=== PATIENT | female | born 1940 | race Two or more races ===

== ENCOUNTER 2020-09-25 08:13 | Observation (INO) | payer MEDICARE, OTHER ==
[~2020-09-25] VITALS: Ht 165.1 cm; Wt 75.0 kg
[~2020-09-25 08:13] MED LIST: ATIVAN0.5 MG PO; K-TAB10 MEQ PO; METHIMAZOLE10 MG PO; PAIN RELIEVER500 M1 PO; POTASSIUM CHLO10 MEQ PO
--- NOTE | 2020-09-25 14:53 | NUR ---
09/25/20 1456 Lorri Bergeron 1435 PATIENT INTO RECOVERY FROM OR, BEDSIDE REPORT. PATIENT HAS 3 LAP SITES WITH STERI STRIPS INTACT. SMALL AMOUNT OF DRAINAGE NOTED AT UNBILICUS. PATIENT AWAKE ON AND OFF, MASK IN PLACE 6L OXYGEN SATURATION 100%. 1450 PATIENT AWAKE ON AND OFF, WILL ANSWER QUESTIONS. REPORTS NO PAIN AT THIS TIME. NO NAUSEA.
--- NOTE | 2020-09-25 15:20 | NUR ---
Arrives on stretcher from OR to be admitted to room 110. Very lethargic at this time. Vitals obtained, assessment completed. Family member at bedside. No signs of pain at this time. Remains on O2 per NC at 2L/min.
--- NOTE | 2020-09-25 16:23 | NUR ---
MINIMAL DRAINAGE FROM UMBILICAL INCISION SITE. STERI-STRIPS REMAIN IN PLACE. INCREASED ALERTNESS NOTED. VITAL SIGNS OBTAINED. FAMILY REMAINS AT BEDSIDE. PATIENT DENIES PAIN AT THIS TIME. CALL LIGHT IN REACH, BED RAILS UP X2.
--- NOTE | 2020-09-25 17:41 | NUR ---
REQUESTS TO USE BATHROOM, CONTINENT OF URINE. CONTINUES TO DENY PAIN. AMBULATES 40 FEET IN [place], THEN RETURNS TO ROOM. SCD'S REPLACED. IV FLUIDS CONTINUE INFUSING. INCISION SITES REMAIN UNCHANGED. ALERT AND ORIENTED. VITALS REMAIN WNL
--- NOTE | 2020-09-25 18:44 | NUR ---
Continues on IV fluids. Admitted to med-surg post op for appendectomy today. Tolerating liquids and food. Urine X1. Ambulated in hallway and denies pain.
--- NOTE | 2020-09-25 19:53 | NUR ---
pt awake, on room air, nepali speaking only. family in room. pt denies c/o pain. not passing gas, coop with assessment. abd 3 lap sites intact, umbilical area with old drainage. scds in place. ivf infusing. tolerating small bites of diet.
--- NOTE | 2020-09-25 20:23 | NUR ---
pt stated she is burping, no c/o pain
--- NOTE | 2020-09-25 22:07 | NUR ---
medicated with Tylenol 1000mg scheduled, denies c/o abd pain. Up to br earlier and voided, back to bed, tolerated well.
--- NOTE | 2020-09-26 00:30 | NUR ---
Resting, awakes easily, ivf infusing, burping, call light and fluids at bedside
--- NOTE | 2020-09-26 02:31 | NUR ---
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 PASSING GAS, HAD SMALL BM. IVF INFUSING, NO C/O ADVERSER EACTION TO ABX. TOLERATING LIQUIDS WELL, NO EMESIS. SCDS IN PLACE, FAMILY IN ROOM
--- NOTE | 2020-09-26 04:03 | NUR ---
Pt on room air, has slept this shift, Croatian speaking only. Pleasant and coop. 3 R abd lap sites, umbilical area with old drainage. passing gas, had a small bm, ANTHONY, abd tender, has been medicated with scheduled Tylenol, has voided, tolerating jello wnad fluids, no emesis. Ambulated hallways up and down, X1, tolerated well. Back to bed, scds inplace. IVf infusing, no c/o adverse reaction to abx. Family member in room. All procedures and post op expectations explained in Croatian, stated understanding, IS at bedside
--- NOTE | 2020-09-26 07:40 | NUR ---
SHIFT REPORT FROM NURSE SANTANA. PT SLEEPING IN BED, EYES CLOSED, EVEN BREATHING. PT'S FAMILY MEMBER IN ROOM ALSO SLEEPING. NO APPARENT SIGNS OF DISTRESS.
[2020-09-26] MEDS ORDERED: ACETAMINOPHEN500 MG PO (08:52)
[2020-09-26] MEDS ORDERED: MOTRIN IB200 MG PO (08:53)
--- NOTE | 2020-09-26 09:12 | NUR ---
IN ROOM FOR MORNING MEDS AND ASSESSMENT. PT REPORTS PAIN IN RT UPPER QUADRANT. UNABLE TO ASSESS SEVERITY D/T LANGUAGE BARRIER. UMBILICAL LAP SITE HAS SEROSANGUINOUS DRAINAGE; OTHERS ARE DRY. BREAKFAST ARRIVES.
--- NOTE | 2020-09-26 10:01 | OR ---
[facility] [address], [place] [address] Signed DATE OF OPERATION: 09/25/2020 SURGEON: Sue Clemons MD PREOPERATIVE DIAGNOSIS: Acute appendicitis. POSTOPERATIVE DIAGNOSES: 1. Acute suppurative appendicitis with early gangrenous changes. 2. Intraabdominal adhesions of omentum. PROCEDURES: 1. Laparoscopic abdominal adhesiolysis. 2. Laparoscopic appendectomy. ANESTHESIA: General endotracheal, Jass Wallace TUFTING SUPERVISOR and local 10 mL of 0.25% Marcaine with epinephrine. INDICATIONS: This 80-year-old white woman is a patient of BRENDA Jones. She lives in [place]. She is accompanied by her to the emergency room earlier today with pain beginning yesterday in the epigastric and interscapular area. Her pain is rather severe. Evaluation by Dr. Nick in the emergency room confirmed an acute appendicitis based on CT scan and clinical examination. Her white count was elevated to 12.5. She has been fluid resuscitated, given intravenous antibiotic cefoxitin and is now to undergo appendectomy, preferred by laparoscopic approach. The risks of bleeding, infection, need for open procedure, and other unforeseen complications were reviewed with the patient and her , who speaks Ecuadorean well. Understanding all this, they wished to proceed. FINDINGS: There were intraabdominal adhesions related to prior abdominal surgery. The omental adhesions to the abdominal wall were taken down with sharp and electrocautery dissection to provide exposure of the right abdomen. Appendectomy was performed. The appendix itself had early gangrenous changes and definitely significant separation. The terminal ileum and cecum were normal. Complete appendectomy was performed without problem. Electronically Signed By: SUE CLEMONS MD 09/26/20 1001 PATIENT NAME: MADDIE ARENAS OPERATIVE REPORT DATE OF : 44 REPORT #: [id number] PHYSICIAN: SUE CLEMONS MD PCP: LAITH PURI REPORT IS CONFIDENTIAL AND NOT TO BE RELEASED WITHOUT AUTHORIZATION [facility] [address], [place] [address] Signed DESCRIPTION OF PROCEDURE: The patient was brought to the operating room, given a general endotracheal anesthetic. Her rapid COVID test was known to be negative. Preoperative antibiotic, cefoxitin had been given. Sequential compression device stockings used. After satisfactory general endotracheal anesthesia, the abdomen was prepared with a chlorhexidine solution and draped sterilely. An infraumbilical incision was made and using an open Francisco cannula technique, pneumoperitoneum achieved to a level of 14 mmHg of carbon-dioxide gas. Intraabdominal inspection showed a wall of adhesions of omentum to the abdominal area. An epigastric 12 mm port was placed and the camera placed to that site. Through the infraumbilical port site, hook cautery was used to free the omental adhesions from the abdominal wall. Thus, opening the abdomen for better inspection of the right side. The camera was replaced to the epigastric port. A 5 mm port was placed in the right lower quadrant. Using two hand manipulation, the cecum was thoroughly examined and ultimately the terminal ileum and antimesenteric fat pad of Treves also manipulated, ultimately showing the tip of the appendix. With various manipulations, the appendix could be brought into view, which showed to be markedly enlarged, dilated, impressively inflamed, suppurative and with early gangrenous changes. The appendix was elevated, ultimately with great care due to its friability. A window was created between the appendix and the cecum and an Endo-BALJINDER stapling device was used to transect the base of the appendix flushed with the cecum. This allowed for elevation of the mesoappendix and ultimately application of two separate loads of the Endo-BALJINDER stapling device with vascular temi. Cautery was assured with this small amount of electrocautery to the staple line. The appendix was placed in an Endobag and extracted through the umbilical port site without problem. The photographs were taken. Irrigation was undertaken of the right lower quadrant as there was some bleeding initially, this was ultimately suctioned free and there was no sign of further bleeding. Some electrocautery was applied to the right lower quadrant 5 mm trocar upon its extraction. The epigastric port was removed under direct visualization showing no sign of bleeding. The infraumbilical fascial incision was reapproximated with interrupted 0-Vicryl suture. A 10 mL of 0.25% Marcaine with epinephrine was injected into the trocar sites. The skin was closed with interrupted 3-0 Vicryl. Steri-Strips were applied. The patient was ultimately extubated and transferred to the recovery room in good condition, having suffered no complications. Sponge, needle, and instrument counts reported as correct x3. Sue Clemons MD Electronically Signed By: SUE CLEMONS MD 09/26/20 1001 PATIENT NAME: MADDIE ARENAS OPERATIVE REPORT DATE OF : 44 REPORT #: [id number] PHYSICIAN: SUE CLEMONS MD PCP: LAITH PURI REPORT IS CONFIDENTIAL AND NOT TO BE RELEASED WITHOUT AUTHORIZATION [facility] [address] [place] [address] Signed /MODL /[id number] cc: BRENDA Jones Copies: LAITH PURI ~ Electronically Signed By: SUE CLEMONS MD 09/26/20 1001 PATIENT NAME: MADDIE ARENAS OPERATIVE REPORT DATE OF : 44 REPORT #: [id number] PHYSICIAN: SUE CLEMONS MD PCP: LAITH PURI REPORT IS CONFIDENTIAL AND NOT TO BE RELEASED WITHOUT AUTHORIZATION
--- NOTE | 2020-09-26 10:01 | HP ---
[facility] [address], [place] [address] Signed ADMISSION DATE: 09/25/2020 REASON FOR ADMISSION: Acute appendicitis. HISTORY OF PRESENT ILLNESS: This 80-year-old woman is accompanied by her Bulgarian-speaking and here from [facility] with complaints of upper and epigastric and mid abdominal pain. Her pain started approximately 9:30 last night and radiates into the back, but not associated with nausea or vomiting. She had no fever or chills, or shortness of breath. She had cholecystectomy 15 years ago. She has had thyroid surgery as well according to her . She notes the pain is rather significant. It was benefitted by fentanyl, which was given in the emergency room setting. The patient does have a history of nephrolithiasis in the past. She is known to have penicillin allergy. Her medications at home include Ativan. The patient underwent a CT scan of the abdomen. This was interpreted by Dr. Calderon. I have reviewed the images myself. She clearly has a dilated appendix with a fecalith with findings consistent with acute appendicitis. The right kidney is noted to have small cysts. The left with a nonobstructive 3 mm calculus. There is absent gallbladder. Liver appears normal otherwise. REVIEW OF SYSTEMS: The patient is rather significantly painful in the abdomen and some of it in the interscapular space. She has no shortness of breath or chest pain. PHYSICAL EXAMINATION: GENERAL: This is a woman, who looks moderately uncomfortable at this time. VITAL SIGNS: Temperature is 98, blood pressure 173/67, pulse oximetry on room air 94%, respiration 16. NECK: Shows no thyromegaly or cervical adenopathy. Trachea is midline. Mucous membranes are slightly moist. CHEST: Shows normal respiratory excursion without tachypnea. ABDOMEN: Scaphoid and obese. Rovsing sign is negative. There is mild right lower abdominal tenderness. She does not have ascites or distention. EXTREMITIES: Show no clubbing, cyanosis, or edema. LABORATORY STUDIES: Show white count of 12.3, hematocrit 40.9, platelets 231,000. Chem profile shows a potassium of 3.4, creatinine of 0.4. Liver enzymes were normal. Glucose elevated at Electronically Signed By: SUE CLEMONS MD 09/26/20 1001 PATIENT NAME: MADDIE ARENAS HISTORY AND PHYSICAL DATE OF : 44 REPORT #: [id number] PHYSICIAN: SUE CLEMONS MD PCP: LAITH PURI REPORT IS CONFIDENTIAL AND NOT TO BE RELEASED WITHOUT AUTHORIZATION [facility] [address], [place] [address] Signed 162. Urinalysis shows specific gravity of 1.017. Urine protein is 100, large amount of blood, RBCs considered 50 per high power field, white cells 5 per high-power field. Rapid COVID test is currently pending. ASSESSMENT: Her clinical history is notable for upper abdominal pain, which certainly does occur in the early stage of appendicitis. She has some right lower abdominal tenderness but not as severe as I would have expected. She does have interscapular pain and there are 50 red cells per high-power field in her urinalysis. She is noted to have a prior history of nephrolithiasis, though there is no sign of hydroureter on CT scan currently and there is a 3 mm ureteral calculus on the left side. Most likely the overall problem is appendicitis as suspected on the CT scan. Fluid resuscitation is ongoing. She has begun on an antibiotic cefoxitin. I have discussed with the aid of the nurse and her who has good command of Bulgarian and the issues at hand and the pathophysiology of the problem to include appendicitis. I have recommended appendectomy as most appropriate way to manage the problem. The risks of bleeding, infection, need for open operation, misdiagnosis, failure of diagnosis, and need for other indicated procedure was reviewed in detail. He and she do understand and wished to proceed. As the COVID rapid test is pending, we will await those studies before proceeding to operative intervention. A positive test would not contraindicate surgery, but would alter our plans of protective gear to wear during the course of operation. Sue Clemons MD /ANUPL /[id number] cc: [facility] Copies: Electronically Signed By: SUE CLEMONS MD 09/26/20 1001 PATIENT NAME: MADDIE ARENAS HISTORY AND PHYSICAL DATE OF : 44 REPORT #: [id number] PHYSICIAN: SUE CLEMONS MD PCP: LAITH PURI REPORT IS CONFIDENTIAL AND NOT TO BE RELEASED WITHOUT AUTHORIZATION [address] [address] Signed ~ Electronically Signed By: SUE CLEMONS MD 09/26/20 1001 PATIENT NAME: MADDIE ARENAS HISTORY AND PHYSICAL DATE OF : 44 REPORT #: [id number] PHYSICIAN: SUE CLEMONS MD PCP: LAITH PURI REPORT IS CONFIDENTIAL AND NOT TO BE RELEASED WITHOUT AUTHORIZATION
--- NOTE | 2020-09-26 10:39 | NUR ---
MED REC COMPLETE
--- NOTE | 2020-09-26 11:10 | NUR ---
IN ROOM FOR DISCHARGE VITALS. REINFORCED UMBILICAL STERISTRIPS WITH GAUZE AND THIN PAPER TAPE. VSS. DISCHRGE INFO SUPPLIED, PT TRANSPORTED VIA WHEELCHAIR TO LOBBY WITH FAMILY.
--- NOTE | 2020-09-26 11:36 | NUR ---
PT'S DISCHARGE PACKET FOUND IN ROOM AFTER DISCHARGE. ATTEMPTED TO CALL NUMBER ON FILE AND IT IS DISCONNECTED.
--- NOTE | 2020-10-01 09:21 | PATH ---
[facility] [address] [place], [place] [address] Signed SPECIMEN(S): A APPENDIX SPECIMEN SOURCE: A. APPENDIX CLINICAL HISTORY: Acute appendicitis. FINAL PATHOLOGIC DIAGNOSIS: Appendix, appendectomy: - Acute appendicitis and periappendicitis. NAL:cml:C2NR MICROSCOPIC EXAMINATION: Histologic sections of all submitted blocks are examined by light microscopy. Sections demonstrate a distended appendix with acute inflammation present throughout the entire appendiceal wall. The mucosa is focally hyperplastic in areas and denuded in others, changes interpreted as secondary to fecalith obstruction. No dysplasia is identified. These findings, together with the gross examination, support the pathologic diagnosis. GROSS DESCRIPTION: The specimen, labeled "AB, A," and designated on the requisition "appendix," is received in formalin and consists of: Specimen: Appendix with mesoappendix. Dimensions: 10.2 x 1.0-1.6 cm. Serosa: Alves-brown with areas of induration. Perforation: Not grossly identified. Inking: Staple line is inked black. Mucosa: Alves-mottled red (at proximal margin) with dilated lumen Fecalith: Two soft alves fecalith ranging 1.2 to 1.4 cm in greatest dimension located at proximal margin and distal tip. Additional: Alves-brown grumous/viscous material in body. Connection Worker sections are submitted in cassettes (A1-A2). A2: Distal tip AT (under the direct supervision of a pathologist) Following initial examination of HE slides, Dr. Moraes requests remaining specimen. Remaining appendix entirely submitted sequentially from proximal margin to distal tip in cassettes: A3-A8 Note: fatty tissue retained PATIENT NAME: MADDIE ARENAS PATHOLOGY DATE OF : 42 REPORT #: [id number] PHYSICIAN: SALINA SALVADOR PCP: LAITH PURI REPORT IS CONFIDENTIAL AND NOT TO BE RELEASED WITHOUT AUTHORIZATION [facility] [address] [place] [address] Signed AT The Gross Description was prepared using a voice recognition system. The report was reviewed for accuracy; however, sound-alike word errors, addition and/or deletions may occur. If there is any question about this report, please contact Client Services. PERFORMING LABORATORY: The technical component was performed by [facility] [place] [address] (Historical Archeologist: Cheyenne Dasilva MD; CLIA# [id number]). Professional interpretation was performed by [email or web address], [address] [address] (CLIA# [id number]). Diagnostician: Melvi Moraes MD Pathologist Electronically Signed 10/01/2020 Copies: ~ PATIENT NAME: MADDIE ARENAS PATHOLOGY DATE OF : 44 REPORT #: [id number] PHYSICIAN: SALINA PATHOLOGY PCP: LAITH PURI REPORT IS CONFIDENTIAL AND NOT TO BE RELEASED WITHOUT AUTHORIZATION
== END 2020-09-26 11:07 | disposition home or self-care (01) ==
LOC: ED 08:13 → MS 08:14
PROVIDERS: ADMIT Surgery; ATTEND Surgery
PROC: 0DTJ4ZZ Resection of Appendix, Percutaneous Endoscopic Approach (ICD-10-PCS; principal; 2020-09-25 13:02)
DX: K35.80 Unspecified acute appendicitis (principal); Z90.49 Acquired absence of other specified parts of digestive tract; Z87.442 Personal history of urinary calculi; Z88.0 Allergy status to penicillin; Z79.899 Other long term (current) drug therapy; Z20.828 Contact with and (suspected) exposure to other viral communicable diseases
CPT/HCPCS: 00840; 74177; 80053; 81001; 83690; 85025; 94760; 96365; 96375; 96376; 99285-25; C9803; G0378; J0330; J0694; J1170; J1885; J2001; J2405; J2704; J3010; J7121; Q9967; U0003

== ENCOUNTER 2020-10-31 12:40 | Emergency (ER) | payer MEDICARE, OTHER ==
[~2020-10-31] VITALS: Ht 165.1 cm; Wt 74.8 kg
[~2020-10-31 12:40] MED LIST changes: +ACETAMINOPHEN500 MG PO; +MOTRIN IB200 MG PO
== END 2020-10-31 19:28 | disposition home or self-care (01) ==
LOC: ED 12:40
DX: K91.872 Postprocedural seroma of a digestive system organ or structure following a digestive system procedure (principal); Z88.0 Allergy status to penicillin; Z79.899 Other long term (current) drug therapy
CPT/HCPCS: 36415; 85025; 99284-25

== ENCOUNTER 2021-12-31 10:53 | Emergency (ER) | payer MEDICARE, OTHER ==
[~2021-12-31] VITALS: Ht 160 cm; Wt 66.3 kg
--- OUTSIDE RECORDS SUMMARY | 2021-12-31 10:56 | XMS ---
PreManage Notification: MADDIE ARENAS Security Unit Secy Events No recent Security Events currently on file CRITERIA MET - [facility] - 2 Visits in 30 Days - [facility] - 3 Facilities in 90 Days CARE PROVIDERS There are no care providers on record at this time. Ja has no Care Guidelines for this patient. ENanda VISIT COUNT (12 MO.) [address] [address] [facility] TOTAL 4 NOTE: Visits indicate total known visits. ED/UCC VISIT TRACKING (12 MO.) 12/31/2021 10:54 [facility] [place] TYPE: Emergency COMPLAINT: - POSS HIGH B/P 12/04/2021 23:08 [facility] OR TYPE: Emergency DIAGNOSES: - Non-ST elevation (NSTEMI) myocardial infarction - CHEST PAIN 10/13/2021 13:54 [facility] [place] TYPE: Emergency DIAGNOSES: - Acute embolism and thrombosis of unspecified deep veins of right lower extremity 09/25/2021 20:55 [facility] OR TYPE: Emergency DIAGNOSES: - Heart failure, unspecified - Non-ST elevation (NSTEMI) myocardial infarction - chest pain INPATIENT VISIT TRACKING (12 MO.) 09/26/2021 04:13 [facility] [place] TYPE: Cardiovacular ICU DIAGNOSES: - Non-ST elevation (NSTEMI) myocardial infarction - Presence of aortocoronary bypass graft - Heart failure, unspecified [email or web address]
[2021-12-31] MEDS ORDERED: METOPROLOL TART25 MG PO (11:59)
[2021-12-31] MEDS ORDERED: WARFARIN SODIUM5 MG PO (12:00)
[2021-12-31] MEDS ORDERED: FERROUS SULFAT325 M1 PO (12:00)
[2021-12-31] MEDS ORDERED: COLCRYS0.6 MG PO (12:00)
[2021-12-31] MEDS ORDERED: VITAMIN C500 M1 PO (12:01)
[2021-12-31] MEDS ORDERED: DILTIAZEM 24HR120 MG PO (12:02)
[2021-12-31] MEDS ORDERED: METHIMAZOLE10 MG PO (12:02)
[2021-12-31] MEDS ORDERED: ONDANSETRON ODT8 MG PO (12:03)
[2021-12-31] MEDS ORDERED: LISINOPRIL5 MG PO (12:03)
[2021-12-31] MEDS ORDERED: ATORVASTATIN CA80 MG PO (12:04)
[2021-12-31] MEDS ORDERED: LO-DOSE ASPIRIN81 MG PO (12:05)
== END 2021-12-31 13:10 | disposition home or self-care (01) ==
LOC: ED 10:53
DX: R11.0 Nausea (principal); E05.90 Thyrotoxicosis, unspecified without thyrotoxic crisis or storm; Z88.0 Allergy status to penicillin; Z79.899 Other long term (current) drug therapy; Z79.01 Long term (current) use of 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; Z79.82 Long term (current) use of aspirin
CPT/HCPCS: 99283

== ENCOUNTER 2022-01-14 22:07 | Emergency (ER) | payer MEDICARE, OTHER ==
[~2022-01-14] VITALS: Ht 160 cm; Wt 66.3 kg
[~2022-01-14 22:07] MED LIST changes: +ATORVASTATIN CA80 MG PO; +COLCRYS0.6 MG PO; +DILTIAZEM 24HR120 MG PO; +FERROUS SULFAT325 M1 PO; +LISINOPRIL5 MG PO; +LO-DOSE ASPIRIN81 MG PO; +METOPROLOL TART25 MG PO; +ONDANSETRON ODT8 MG PO; +VITAMIN C500 M1 PO; +WARFARIN SODIUM5 MG PO
--- OUTSIDE RECORDS SUMMARY | 2022-01-14 22:10 | XMS ---
PreManage Notification: MADDIE ARENAS Security Quality Consultant Events No recent Security Events currently on file CRITERIA MET - [facility] - 2 Visits in 30 Days CARE PROVIDERS LAITH PURI Nurse Practitioner: 01/01/2022-Current PHONE: Unknown Ja has no Care Guidelines for this patient. E.Chirag. VISIT COUNT (12 MO.) [address] TOTAL 5 NOTE: Visits indicate total known visits. 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 - Dizziness and giddiness - Nausea - local company intermodal truck driver (current) use of 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 - Thyrotoxicosis, unspecified without thyrotoxic crisis or storm - Allergy status to penicillin 12/04/2021 23:08 [facility] [place] TYPE: Emergency DIAGNOSES: - Non-ST elevation (NSTEMI) myocardial infarction - CHEST PAIN 10/13/2021 13:54 [facility] [place] TYPE: Emergency DIAGNOSES: - Acute embolism and thrombosis of unspecified deep veins of right lower extremity 09/25/2021 20:55 [facility] [place] TYPE: Emergency DIAGNOSES: - Heart failure, unspecified - Non-ST elevation (NSTEMI) myocardial infarction - chest pain INPATIENT VISIT TRACKING (12 MO.) 09/26/2021 04:13 [facility] [place] TYPE: Cardiovacular ICU DIAGNOSES: - Non-ST elevation (NSTEMI) myocardial infarction - Presence of aortocoronary bypass graft - Heart failure, unspecified [email or web address]
[2022-01-15] MEDS ORDERED: LISINOPRIL20 MG PO (00:36)
--- NOTE | 2022-01-15 06:36 | EKG ---
[facility] [address] [facility] [place], [place] [address] Signed Normal sinus rhythm Nonspecific ST and T wave abnormality Abnormal ECG No previous ECGs available Confirmed by HARINDER BALLESTEROS MD ([id number]) on 01/15/2022 6:36:18 AM Electronically Signed By: HARINDER BALLESTEROS MD 01/15/22 0636 PATIENT NAME: MADDIE ARENAS Electrocardiogram DATE OF : 44 PHYSICIAN: HARINDER BALLESTEROS MD REPORT #: [id number] REPORT IS CONFIDENTIAL AND NOT TO BE RELEASED WITHOUT AUTHORIZATION
== END 2022-01-15 00:45 | disposition home or self-care (01) ==
LOC: ED 22:07
DX: I10 Essential (primary) hypertension (principal); E05.90 Thyrotoxicosis, unspecified without thyrotoxic crisis or storm; Z88.0 Allergy status to penicillin; Z79.899 Other long term (current) drug therapy; Z79.01 Long term (current) use of 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; Z79.82 Long term (current) use of aspirin
CPT/HCPCS: 36415; 71045; 80048; 83735; 83880; 84443; 84484; 85025; 85610; 93005; 93010; 96374; 96375; 99285-25; J1940

== ENCOUNTER 2023-07-03 18:41 | Emergency (ER) | payer MEDICARE, OTHER ==
[~2023-07-03] VITALS: Ht 160 cm; Wt 65.0 kg
--- OUTSIDE RECORDS SUMMARY | ~2023-07-03 | XMS | Continuity of Care Document ---
Demographics + + + | Address | [address] | | | [place] [address] | + + + | Preferred Language | Unknown | + + + | Marital Status | | + + + | Moravian Affiliation | Unknown | + + + | Race | Unknown | + + + | Ethnic Group | or | + + + Author + + + | Author | [facility] | + + + | Organization | [facility] | + + + | Address | [address] | | | [place] [address] | + + + | Phone | | + + + Care Team Providers + + + + | Care Shoe Trimmer Name | Role | Phone | + + + + Unavailable | Unavailable | + + + + Unavailable | Unavailable | + + + + Unavailable | Unavailable | + + + + Allergies and Intolerances + + + + + + | date | description | facility | reaction | severity | + + + + + + | (no date) | METFORMIN | [facility] | (no reaction) | (no severity) | | | | Clinic | | | + + + + + + | (no date) | METFORMIN | [facility] | (no reaction) | (no severity) | | | | Medicine | | | + + + + + + | (no date) | METFORMIN | [facility] | (no reaction) | (no severity) | | | | Medicine | | | + + + + + + | (no date) | METFORMIN | [facility] | (no reaction) | (no severity) | | | | [facility] | | | | | | Emergency | | | | | | Department | | | + + + + + + | (no date) | METFORMIN | [facility] | (no reaction) | (no severity) | | | | Clinic | | | + + + + + + | (no date) | METFORMIN | [facility] | (no reaction) | (no severity) | | | | Medicine | | | + + + + + + | (no date) | METFORMIN | [facility] | (no reaction) | (no severity) | | | | Medicine | | | + + + + + + | (no date) | METFORMIN | [facility] | (no reaction) | (no severity) | | | | [facility] | | | | | | Emergency | | | | | | Department | | | + + + + + + | (no date) | Mild | [facility] | (no reaction) | (no severity) | | | | Clinic | | | + + + + + + | (no date) | Mild | [facility] | (no reaction) | (no severity) | | | | Medicine | | | + + + + + + | (no date) | Mild | [facility] | (no reaction) | (no severity) | | | | Medicine | | | + + + + + + | (no date) | Mild | [facility] | (no reaction) | (no severity) | | | | [facility] | | | | | | Emergency | | | | | | Department | | | + + + + + + | (no date) | PENICILLINS | [facility] | (no reaction) | (no severity) | | | | Clinic | | | + + + + + + | (no date) | PENICILLINS | [facility] | (no reaction) | (no severity) | | | | Medicine | | | + + + + + + | (no date) | PENICILLINS | [facility] | (no reaction) | (no severity) | | | | Medicine | | | + + + + + + | (no date) | PENICILLINS | [facility] | (no reaction) | (no severity) | | | | [facility] | | | | | | Emergency | | | | | | Department | | | + + + + + + | (no date) | METFORMIN | [facility] | (no reaction) | (no severity) | | | | Clinic | | | + + + + + + | (no date) | METFORMIN | [facility] | (no reaction) | (no severity) | | | | Medicine | | | + + + + + + | (no date) | METFORMIN | [facility] | (no reaction) | (no severity) | | | | Medicine | | | + + + + + + | (no date) | METFORMIN | [facility] | (no reaction) | (no severity) | | | | [facility] | | | | | | Emergency | | | | | | Department | | | + + + + + + | (no date) | METFORMIN | [facility] | (no reaction) | (no severity) | | | | Clinic | | | + + + + + + | (no date) | METFORMIN | [facility] | (no reaction) | (no severity) | | | | Medicine | | | + + + + + + | (no date) | METFORMIN | [facility] | (no reaction) | (no severity) | | | | Medicine | | | + + + + + + | (no date) | METFORMIN | [facility] | (no reaction) | (no severity) | | | | [facility] | | | | | | Emergency | | | | | | Department | | | + + + + + + | (no date) | METFORMIN | [facility] | (no reaction) | (no severity) | | | | Clinic | | | + + + + + + | (no date) | METFORMIN | [facility] | (no reaction) | (no severity) | | | | Medicine | | | + + + + + + | (no date) | METFORMIN | [facility] | (no reaction) | (no severity) | | | | Medicine | | | + + + + + + | (no date) | METFORMIN | [facility] | (no reaction) | (no severity) | | | | [facility] | | | | | | Emergency | | | | | | Department | | | + + + + + + | (no date) | Swelling | [facility] | (no reaction) | (no severity) | | | | Clinic | | | + + + + + + | (no date) | Swelling | [facility] | (no reaction) | (no severity) | | | | Medicine | | | + + + + + + | (no date) | Swelling | [facility] | (no reaction) | (no severity) | | | | Medicine | | | + + + + + + | (no date) | Swelling | [facility] | (no reaction) | (no severity) | | | | [facility] | | | | | | Emergency | | | | | | Department | | | + + + + + + | (no date) | METFORMIN | [facility] | (no reaction) | (no severity) | | | | Clinic | | | + + + + + + | (no date) | METFORMIN | [facility] | (no reaction) | (no severity) | | | | Medicine | | | + + + + + + | (no date) | METFORMIN | [facility] | (no reaction) | (no severity) | | | | Medicine | | | + + + + + + | (no date) | METFORMIN | [facility] | (no reaction) | (no severity) | | | | [facility] | | | | | | Emergency | | | | | | Department | | | + + + + + + | (no date) | METFORMIN | [facility] | (no reaction) | (no severity) | | | | Clinic | | | + + + + + + | (no date) | METFORMIN | [facility] | (no reaction) | (no severity) | | | | Medicine | | | + + + + + + | (no date) | METFORMIN | [facility] | (no reaction) | (no severity) | | | | Medicine | | | + + + + + + | (no date) | METFORMIN | [facility] | (no reaction) | (no severity) | | | | [facility] | | | | | | Emergency | | | | | | Department | | | + + + + + + | (no date) | Other (See | [facility] | (no reaction) | (no severity) | | | Comments) | Clinic | | | + + + + + + | (no date) | Other (See | [facility] | (no reaction) | (no severity) | | | Comments) | Medicine | | | + + + + + + | (no date) | Other (See | [facility] | (no reaction) | (no severity) | | | Comments) | Medicine | | | + + + + + + | (no date) | Other (See | [facility] | (no reaction) | (no severity) | | | Comments) | [facility] | | | | | | Emergency | | | | | | Department | | | + + + + + + Encounters No information. Functional Status No information. Immunizations No information. Medications + + + + | date | description | facility | + + + + | 2021-10-04 00:00 | docusate sodium 250 mg | [facility] | | | oral capsule | | + + + + | 2021-10-04 00:00 | docusate sodium 250 mg | [facility] | | | oral capsule | | + + + + | 2021-10-04 00:00 | docusate sodium 250 mg | [facility] | | | oral capsule | | + + + + | 2021-10-04 00:00 | docusate sodium 250 mg | [facility] | | | oral capsule | Emergency Department | + + + + | 2022-03-26 00:00 | colchicine 600 mcg oral | [facility] | | | tablet | | + + + + | 2022-03-26 00:00 | colchicine 600 mcg oral | [facility] | | | tablet | | + + + + | 2022-06-13 00:00 | METHIMAZOLE | [facility] | + + + + | 2021-10-09 00:00 | methimazole 10 mg oral | [facility] | | | tablet | | + + + + | 2021-10-09 00:00 | methimazole 10 mg oral | [facility] | | | tablet | | + + + + | 2021-12-01 00:00 | methimazole 10 mg oral | [facility] | | | tablet | | + + + + | 2021-12-01 00:00 | methimazole 10 mg oral | [facility] | | | tablet | | + + + + | 2021-12-01 00:00 | methimazole 10 mg oral | [facility] | | | tablet | | + + + + | 2021-12-01 00:00 | methimazole 10 mg oral | [facility] | | | tablet | Emergency Department | + + + + | 2020-09-26 00:00 | ACETAMINOPHEN | [facility] | + + + + | 2022-06-13 00:00 | ACETAMINOPHEN | [facility] | + + + + | 2022-03-26 00:00 | nitroglycerin 0.02 mg/mg | [facility] | | | topical ointment | Emergency Department | | | [nitro-bid] | | + + + + | 2022-03-26 00:00 | nitroglycerin 2 % topical | [facility] | | | ointment | Emergency Department | + + + + | 2022-06-13 00:00 | ATORVASTATIN CALCIUM | [facility] | + + + + | 2021-10-04 00:00 | atorvastatin 80 mg oral | [facility] | | | tablet | | + + + + | 2021-10-04 00:00 | atorvastatin 80 mg oral | [facility] | | | tablet | | + + + + | 2021-10-04 00:00 | atorvastatin 80 mg oral | [facility] | | | tablet | Emergency Department | + + + + | 2022-01-05 00:00 | atorvastatin 80 mg oral | [facility] | | | tablet | | + + + + | 2022-01-05 00:00 | atorvastatin 80 mg oral | [facility] | | | tablet | | + + + + | 2022-06-13 00:00 | ASCORBIC ACID | [facility] | + + + + | 2021-10-04 00:00 | vitamin c 500 mg oral | [facility] | | | tablet | | + + + + | 2021-10-04 00:00 | vitamin c 500 mg oral | [facility] | | | tablet | | + + + + | 2021-10-04 00:00 | vitamin c 500 mg oral | [facility] | | | tablet | | + + + + | 2021-10-04 00:00 | vitamin c 500 mg oral | [facility] | | | tablet | Emergency Department | + + + + | 2022-06-13 00:00 | ASPIRIN | [facility] | + + + + | 2021-10-04 00:00 | aspirin 81 mg delayed | [facility] | | | release oral tablet | | + + + + | 2021-10-04 00:00 | aspirin 81 mg delayed | [facility] | | | release oral tablet | | + + + + | 2021-10-04 00:00 | aspirin 81 mg delayed | [facility] | | | release oral tablet | | + + + + | 2021-10-04 00:00 | aspirin 81 mg delayed | [facility] | | | release oral tablet | Emergency Department | + + + + | 2021-11-24 00:00 | betamethasone 0.5 mg/ml | [facility] | | | (betamethasone dipropionate | | | | 0.64 mg/ml) / clotrimazole | | | | 10 mg/ml topical cream | | + + + + | 2021-11-24 00:00 | betamethasone 0.5 mg/ml | [facility] | | | (betamethasone dipropionate | | | | 0.64 mg/ml) / clotrimazole | | | | 10 mg/ml topical cream | | + + + + | 2021-11-24 00:00 | betamethasone 0.5 mg/ml | [facility] | | | (betamethasone dipropionate | | | | 0.64 mg/ml) / clotrimazole | | | | 10 mg/ml topical cream | | + + + + | 2021-11-24 00:00 | betamethasone 0.5 mg/ml | [facility] | | | (betamethasone dipropionate | Emergency Department | | | 0.64 mg/ml) / clotrimazole | | | | 10 mg/ml topical cream | | + + + + | 2022-06-13 00:00 | FERROUS SULFATE | [facility] | + + + + | 2021-10-04 00:00 | ferrous sulfate 325 mg | [facility] | | | (iron 65 mg) oral tablet | | + + + + | 2021-10-04 00:00 | ferrous sulfate 325 mg | [facility] | | | (iron 65 mg) oral tablet | | + + + + | 2021-10-04 00:00 | ferrous sulfate 325 mg | [facility] | | | (iron 65 mg) oral tablet | Emergency Department | + + + + | 2021-10-04 00:00 | furosemide 20 mg oral | [facility] | | | tablet | | + + + + | 2021-10-04 00:00 | furosemide 20 mg oral | [facility] | | | tablet | | + + + + | 2021-10-04 00:00 | furosemide 20 mg oral | [facility] | | | tablet | Emergency Department | + + + + | 2020-09-26 00:00 | IBUPROFEN | [facility] | + + + + | 2022-06-13 00:00 | LISINOPRIL | [facility] | + + + + | 2021-10-13 00:00 | lisinopril 5 mg oral | [facility] | | | tablet | | + + + + | 2021-10-13 00:00 | lisinopril 5 mg oral | [facility] | | | tablet | | + + + + | 2021-10-13 00:00 | lisinopril 5 mg oral | [facility] | | | tablet | Emergency Department | + + + + | 2022-01-13 00:00 | lisinopril 5 mg oral | [facility] | | | tablet | | + + + + | 2022-01-13 00:00 | lisinopril 5 mg oral | [facility] | | | tablet | | + + + + | 2022-01-13 00:00 | lisinopril 5 mg oral | [facility] | | | tablet | | + + + + | 2022-06-13 00:00 | ONDANSETRON | [facility] | + + + + | 2021-10-13 00:00 | ondansetron 8 mg | [facility] | | | disintegrating oral tablet | | + + + + | 2021-10-13 00:00 | ondansetron 8 mg | [facility] | | | disintegrating oral tablet | | + + + + | 2021-10-13 00:00 | ondansetron 8 mg | [facility] | | | disintegrating oral tablet | | + + + + | 2021-10-13 00:00 | ondansetron 8 mg | [facility] | | | disintegrating oral tablet | Emergency Department | + + + + | 2013-10-20 00:00 | POTASSIUM CHLORIDE | [facility] | + + + + | 2021-10-04 00:00 | sennosides, half-way 8.6 mg | [facility] | | | oral tablet | | + + + + | 2021-10-04 00:00 | sennosides, half-way 8.6 mg | [facility] | | | oral tablet | | + + + + | 2021-10-04 00:00 | sennosides, half-way 8.6 mg | [facility] | | | oral tablet | | + + + + | 2021-10-04 00:00 | sennosides, half-way 8.6 mg | [facility] | | | oral tablet | Emergency Department | + + + + | 2021-10-04 00:00 | acetaminophen 325 mg oral | [facility] | | | tablet | | + + + + | 2021-10-04 00:00 | acetaminophen 325 mg oral | [facility] | | | tablet | | + + + + | 2021-10-04 00:00 | acetaminophen 325 mg oral | [facility] | | | tablet | | + + + + | 2021-10-04 00:00 | acetaminophen 325 mg oral | [facility] | | | tablet | Emergency Department | + + + + | 2022-01-15 00:00 | LISINOPRIL | [facility] | + + + + | 2021-10-04 00:00 | potassium chloride 10 meq | [facility] | | | extended release oral | | | | tablet | | + + + + | 2021-10-04 00:00 | potassium chloride 10 meq | [facility] | | | extended release oral | | | | tablet | | + + + + | 2021-10-04 00:00 | potassium chloride 10 meq | [facility] | | | extended release oral | Emergency Department | | | tablet | | + + + + | 2014-10-06 00:00 | POTASSIUM CHLORIDE | [facility] | + + + + | 2022-06-13 00:00 | DILTIAZEM HCL | [facility] | + + + + | 2021-10-04 00:00 | diltiazem hcl 120 mg 24 hr | [facility] | | | extended release oral | | | | capsule | | + + + + | 2021-10-04 00:00 | diltiazem hcl 120 mg 24 hr | [facility] | | | extended release oral | | | | capsule | | + + + + | 2021-12-01 00:00 | diltiazem hcl 120 mg 24 hr | [facility] | | | extended release oral | | | | capsule | | + + + + | 2021-12-01 00:00 | diltiazem hcl 120 mg 24 hr | [facility] | | | extended release oral | | | | capsule | | + + + + | 2021-12-01 00:00 | diltiazem hcl 120 mg 24 hr | [facility] | | | extended release oral | | | | capsule | | + + + + | 2021-12-01 00:00 | diltiazem hcl 120 mg 24 hr | [facility] | | | extended release oral | Emergency Department | | | capsule | | + + + + | 2022-06-13 00:00 | WARFARIN SODIUM | [facility] | + + + + | 2022-01-12 00:00 | warfarin sodium 5 mg oral | [facility] | | | tablet | | + + + + | 2022-01-12 00:00 | warfarin sodium 5 mg oral | [facility] | | | tablet | | + + + + | 2022-01-12 00:00 | warfarin sodium 5 mg oral | [facility] | | | tablet | | + + + + | 2021-10-14 00:00 | jantoven 5 mg oral tablet | [facility] | + + + + | 2021-11-11 00:00 | jantoven 5 mg oral tablet | [facility] | + + + + | 2021-11-11 00:00 | jantoven 5 mg oral tablet | [facility] | + + + + | 2021-11-11 00:00 | jantoven 5 mg oral tablet | [facility] | | | | Emergency Department | + + + + | 2022-06-13 00:00 | COLCHICINE | [facility] | + + + + | 2022-06-13 00:00 | METOPROLOL TARTRATE | [facility] | + + + + | 2021-10-04 00:00 | metoprolol tartrate 25 mg | [facility] | | | oral tablet | | + + + + | 2021-10-04 00:00 | metoprolol tartrate 25 mg | [facility] | | | oral tablet | | + + + + | 2021-10-04 00:00 | metoprolol tartrate 25 mg | [facility] | | | oral tablet | | + + + + | 2021-10-04 00:00 | metoprolol tartrate 25 mg | [facility] | | | oral tablet | Emergency Department | + + + + | 2021-10-04 00:00 | polyethylene glycol 3350 | [facility] | | | 17 gm powder for oral | | | | solution | | + + + + | 2021-10-04 00:00 | polyethylene glycol 3350 | [facility] | | | 17 gm powder for oral | | | | solution | | + + + + | 2021-10-04 00:00 | polyethylene glycol 3350 | [facility] | | | 17 gm powder for oral | | | | solution | | + + + + | 2021-10-04 00:00 | polyethylene glycol 3350 | [facility] | | | 17 gm powder for oral | Emergency Department | | | solution | | + + + + Problems + + + + | date | description | facility | + + + + | 2014-10-06 00:00 | Paresthesia | [facility] | + + + + | 2016-05-26 00:00 | osteoporosis (disorder) | [facility] | + + + + | 2016-05-26 00:00 | osteoporosis (disorder) | [facility] | + + + + | 2016-05-26 00:00 | osteoporosis (disorder) | [facility] | + + + + | 2016-05-26 00:00 | osteoporosis (disorder) | [facility] | | | | Emergency Department | + + + + | 2016-05-26 00:00 | Oste[facility]osis of multiple [facility] | | | sites | | + + + + | 2016-05-26 00:00 | Osteoporosis of multiple | [facility] | | | sites | | + + + + | 2016-05-26 00:00 | Osteoporosis of multiple | [facility] | | | sites | | + + + + | 2016-05-26 00:00 | Osteoporosis of multiple | [facility] | | | sites | Emergency Department | + + + + | 2017-01-29 00:00 | Encounter for medical | [facility] | | | screening examination | | + + + + | 2018-11-21 00:00 | systemic primary arterial | [facility] | | | hypertension | | + + + + | 2018-11-21 00:00 | systemic primary arterial | [facility] | | | hypertension | | + + + + | 2018-11-21 00:00 | systemic primary arterial | [facility] | | | hypertension | | + + + + | 2018-11-21 00:00 | systemic primary arterial | [facility] | | | hypertension | Emergency Department | + + + + | 2018-11-21 00:00 | Essential hypertension | [facility] | + + + + | 2018-11-21 00:00 | Essential hypertension | [facility] | + + + + | 2018-11-21 00:00 | Essential hypertension | [facility] | + + + + | 2018-11-21 00:00 | Essential hypertension | [facility] | | | | Emergency Department | + + + + | 2020-09-25 00:00 | Acute appendicitis | [facility] | + + + + | 2020-12-06 00:00 | acute appendicitis | [facility] | | | (disorder) | | + + + + | 2020-12-06 00:00 | acute appendicitis | [facility] | | | (disorder) | | + + + + | 2020-12-06 00:00 | acute appendicitis | [facility] | | | (disorder) | | + + + + | 2020-12-06 00:00 | acute appendicitis | [facility] | | | (disorder) | Emergency Department | + + + + | 2020-12-06 00:00 | Acute appendicitis | [facility] | + + + + | 2020-12-06 00:00 | Acute appendicitis | [facility] | + + + + | 2020-12-06 00:00 | Acute appendicitis | [facility] | + + + + | 2020-12-06 00:00 | Acute appendicitis | [facility] | | | | Emergency Department | + + + + | 2021-09-26 00:00 | blood glucose abnormal | [facility] | | | (finding) | | + + + + | 2021-09-26 00:00 | blood glucose abnormal | [facility] | | | (finding) | | + + + + | 2021-09-26 00:00 | blood glucose abnormal | [facility] | | | (finding) | | + + + + | 2021-09-26 00:00 | blood glucose abnormal | [facility] | | | (finding) | Emergency Department | + + + + | 2021-09-26 00:00 | pulmonary edema (disorder) | [facility] | | | | | + + + + | 2021-09-26 00:00 | pulmonary edema (disorder) | [facility] | | | | | + + + + | 2021-09-26 00:00 | pulmonary edema (disorder) | [facility] | | | | | + + + + | 2021-09-26 00:00 | pulmonary edema (disorder) | [facility] | | | | Emergency Department | + + + + | 2021-09-26 00:00 | nstemi - non-st segment | [facility] | | | elevation mi | | + + + + | 2021-09-26 00:00 | nstemi - non-st segment | [facility] | | | elevation mi | | + + + + | 2021-09-26 00:00 | nstemi - non-st segment | [facility] | | | elevation mi | | + + + + | 2021-09-26 00:00 | nstemi - non-st segment | [facility] | | | elevation mi | Emergency Department | + + + + | 2021-09-26 00:00 | congestive heart failure | [facility] | | | (disorder) | | + + + + | 2021-09-26 00:00 | congestive heart failure | [facility] | | | (disorder) | | + + + + | 2021-09-26 00:00 | congestive heart failure | [facility] | | | (disorder) | | + + + + | 2021-09-26 00:00 | congestive heart failure | [facility] | | | (disorder) | Emergency Department | + + + + | 2021-09-26 00:00 | acquired long qt syndrome | [facility] | | | (disorder) | | + + + + | 2021-09-26 00:00 | acquired long qt syndrome | [facility] | | | (disorder) | | + + + + | 2021-09-26 00:00 | acquired long qt syndrome | [facility] | | | (disorder) | | + + + + | 2021-09-26 00:00 | acquired long qt syndrome | [facility] | | | (disorder) | Emergency Department | + + + + | 2021-09-26 00:00 | Acute non-ST elevation | [facility] | | | myocardial infarction | | | | (NSTEMI) | | + + + + | 2021-09-26 00:00 | Acute non-ST elevation | [facility] | | | myocardial infarction | | | | (NSTEMI) | | + + + + | 2021-09-26 00:00 | Acute non-ST elevation | [facility] | | | myocardial infarction | | | | (NSTEMI) | | + + + + | 2021-09-26 00:00 | Acute non-ST elevation | [facility] | | | myocardial infarction | Emergency Department | | | (NSTEMI) | | + + + + | 2021-09-26 00:00 | Acquired long QT syndrome | [facility] | + + + + | 2021-09-26 00:00 | Acquired long QT syndrome | [facility] | + + + + | 2021-09-26 00:00 | Acquired long QT syndrome | [facility] | + + + + | 2021-09-26 00:00 | Acquired long QT syndrome | [facility] | | | | Emergency Department | + + + + | 2021-09-26 00:00 | Congestive heart failure | [facility] | + + + + | 2021-09-26 00:00 | Congestive heart failure | [facility] | + + + + | 2021-09-26 00:00 | Congestive heart failure | [facility] | + + + + | 2021-09-26 00:00 | Congestive heart failure | [facility] | | | | Emergency Department | + + + + | 2021-09-26 00:00 | Pulmonary edema | [facility] | + + + + | 2021-09-26 00:00 | Pulmonary edema | [facility] | + + + + | 2021-09-26 00:00 | Pulmonary edema | [facility] | + + + + | 2021-09-26 00:00 | Pulmonary edema | [facility] | | | | Emergency Department | + + + + | 2021-09-26 00:00 | Blood glucose abnormal | [facility] | + + + + | 2021-09-26 00:00 | Blood glucose abnormal | [facility] | + + + + | 2021-09-26 00:00 | Blood glucose abnormal | [facility] | + + + + | 2021-09-26 00:00 | Blood glucose abnormal | [facility] | | | | Emergency Department | + + + + | 2021-09-27 09:05:51 | Non-ST elevation (NSTEMI) | [facility] | | | myocardial infarction | [facility] | + + + + | 2021-09-30 00:00 | history of coronary artery | [facility] | | | bypass grafting | | | | (situation) | | + + + + | 2021-09-30 00:00 | history of coronary artery | [facility] | | | bypass grafting | | | | (situation) | | + + + + | 2021-09-30 00:00 | history of coronary artery | [facility] | | | bypass grafting | | | | (situation) | | + + + + | 2021-09-30 00:00 | history of coronary artery | [facility] | | | bypass grafting | Emergency Department | | | (situation) | | + + + + | 2021-09-30 00:00 | Hx of CABG | [facility] | + + + + | 2021-09-30 00:00 | Hx of CABG | [facility] | + + + + | 2021-09-30 00:00 | Hx of CABG | [facility] | + + + + | 2021-09-30 00:00 | Hx of CABG | [facility] | | | | Emergency Department | + + + + | 2021-10-02 00:00 | paroxysmal atrial | [facility] | | | fibrillation (disorder) | | + + + + | 2021-10-02 00:00 | paroxysmal atrial | [facility] | | | fibrillation (disorder) | | + + + + | 2021-10-02 00:00 | paroxysmal atrial | [facility] | | | fibrillation (disorder) | | + + + + | 2021-10-02 00:00 | paroxysmal atrial | [facility] | | | fibrillation (disorder) | Emergency Department | + + + + | 2021-10-02 00:00 | hyperthyroidism (disorder) | [facility] | | | | | + + + + | 2021-10-02 00:00 | hyperthyroidism (disorder) | [facility] | | | | | + + + + | 2021-10-02 00:00 | hyperthyroidism (disorder) | [facility] | | | | | + + + + | 2021-10-02 00:00 | hyperthyroidism (disorder) | [facility] | | | | Emergency Department | + + + + | 2021-10-02 00:00 | atherosclerosis aorta | [facility] | + + + + | 2021-10-02 00:00 | atherosclerosis aorta | [facility] | + + + + | 2021-10-02 00:00 | atherosclerosis aorta | [facility] | + + + + | 2021-10-02 00:00 | atherosclerosis aorta | [facility] | | | | Emergency Department | + + + + | 2021-10-02 00:00 | Hyperthyroidism | [facility] | + + + + | 2021-10-02 00:00 | Hyperthyroidism | [facility] | + + + + | 2021-10-02 00:00 | Hyperthyroidism | [facility] | + + + + | 2021-10-02 00:00 | Hyperthyroidism | [facility] | | | | Emergency Department | + + + + | 2021-10-02 00:00 | Paroxysmal atrial | [facility] | | | fibrillation | | + + + + | 2021-10-02 00:00 | Paroxysmal atrial | [facility] | | | fibrillation | | + + + + | 2021-10-02 00:00 | Paroxysmal atrial | [facility] | | | fibrillation | | + + + + | 2021-10-02 00:00 | Paroxysmal atrial | [facility] | | | fibrillation | Emergency Department | + + + + | 2021-10-02 00:00 | Atherosclerosis of aorta | [facility] | + + + + | 2021-10-02 00:00 | Atherosclerosis of aorta | [facility] | + + + + | 2021-10-02 00:00 | Atherosclerosis of aorta | [facility] | + + + + | 2021-10-02 00:00 | Atherosclerosis of aorta | [facility] | | | | Emergency Department | + + + + | 2021-10-03 00:00 | dyslipidemia with high | [facility] | | | density lipoprotein below | | | | reference range and | | | | triglyceride above | | | | reference range due to type | | | | 2 diabetes mellitus | | | | (disorder) | | + + + + | 2021-10-03 00:00 | dyslipidemia with high | [facility] | | | density lipoprotein below | | | | reference range and | | | | triglyceride above | | | | reference range due to type | | | | 2 diabetes mellitus | | | | (disorder) | | + + + + | 2021-10-03 00:00 | dyslipidemia with high | [facility] | | | density lipoprotein below | | | | reference range and | | | | triglyceride above | | | | reference range due to type | | | | 2 diabetes mellitus | | | | (disorder) | | + + + + | 2021-10-03 00:00 | dyslipidemia with high | [place] [facility] | | | density lipoprotein below | Emergency Department | | | reference range and | | | | triglyceride above | | | | reference range due to type | | | | 2 diabetes mellitus | | | | (disorder) | | + + + + | 2021-10-03 00:00 | Dyslipidemia with low high | [facility] | | | density lipoprotein (HDL) | | | | cholesterol with | | | | hypertriglyceridemia due to | | | | type 2 diabetes mellitus | | + + + + | 2021-10-03 00:00 | Dyslipidemia with low high | [facility] | | | density lipoprotein (HDL) | | | | cholesterol with | | | | hypertriglyceridemia due to | | | | type 2 diabetes mellitus | | + + + + | 2021-10-03 00:00 | Dyslipidemia with low high | [facility] | | | density lipoprotein (HDL) | | | | cholesterol with | | | | hypertriglyceridemia due to | | | | type 2 diabetes mellitus | | + + + + | 2021-10-03 00:00 | Dyslipidemia with low high | [facility] | | | density lipoprotein (HDL) | Emergency Department | | | cholesterol with | | | | hypertriglyceridemia due to | | | | type 2 diabetes mellitus | | + + + + | 2021-10-13 00:00 | history of non-st segment | [facility] | | | elevation myocardial | | | | infarction (situation) | | + + + + | 2021-10-13 00:00 | history of non-st segment | [facility] | | | elevation myocardial | | | | infarction (situation) | | + + + + | 2021-10-13 00:00 | history of non-st segment | [facility] | | | elevation myocardial | | | | infarction (situation) | | + + + + | 2021-10-13 00:00 | history of non-st segment | [facility] | | | elevation myocardial | Emergency Department | | | infarction (situation) | | + + + + | 2021-10-13 00:00 | History of non-ST | [facility] | | | elevation myocardial | | | | infarction (NSTEMI) | | + + + + | 2021-10-13 00:00 | History of non-ST | [facility] | | | elevation myocardial | | | | infarction (NSTEMI) | | + + + + | 2021-10-13 00:00 | History of non-ST | [facility] | | | elevation myocardial | | | | infarction (NSTEMI) | | + + + + | 2021-10-13 00:00 | History of non-ST | [facility] | | | elevation myocardial | Emergency Department | | | infarction (NSTEMI) | | + + + + | 2021-10-14 00:00 | acute deep vein thrombosis | [facility] | | | of lower limb (disorder) | | + + + + | 2021-10-14 00:00 | acute deep vein thrombosis | [facility] | | | of lower limb (disorder) | | + + + + | 2021-10-14 00:00 | acute deep vein thrombosis | [facility] | | | of lower limb (disorder) | | + + + + | 2021-10-14 00:00 | acute deep vein thrombosis | [facility] | | | of lower limb (disorder) | Emergency Department | + + + + | 2021-10-14 00:00 | Acute deep vein thrombosis | [facility] | | | (DVT) of lower extremity, | | | | unspecified laterality, | | | | unspecified vein | | + + + + | 2021-10-14 00:00 | Acute deep vein thrombosis | [facility] | | | (DVT) of lower extremity, | | | | unspecified laterality, | | | | unspecified vein | | + + + + | 2021-10-14 00:00 | Acute deep vein thrombosis | [facility] | | | (DVT) of lower extremity, | | | | unspecified laterality, | | | | unspecified vein | | + + + + | 2021-10-14 00:00 | Acute deep vein thrombosis | [facility] | | | (DVT) of lower extremity, | Emergency Department | | | unspecified laterality, | | | | unspecified vein | | + + + + | 2021-10-20 00:00 | patient encounter status | [facility] | | | (finding) | | + + + + | 2021-10-20 00:00 | patient encounter status | [facility] | | | (finding) | | + + + + | 2021-10-20 00:00 | patient encounter status | [facility] | | | (finding) | | + + + + | 2021-10-20 00:00 | patient encounter status | [facility] | | | (finding) | Emergency Department | + + + + | 2021-10-20 00:00 | long-term [facility] use [facility] | | | antico[facility] ([facility]uation) | | + + + + | 2021-10-20 00:00 | long-term current use of | [facility] | | | anticoagulant (situation) | | + + + + | 2021-10-20 00:00 | long-term current use of | [facility] | | | anticoagulant (situation) | | + + + + | 2021-10-20 00:00 | long-term current use of | [facility] | | | anticoagulant (situation) | Emergency Department | + + + + | 2021-10-20 00:00 | Encounter for therapeutic | [facility] | | | drug monitoring | | + + + + | 2021-10-20 00:00 | Encounter for therapeutic | [facility] | | | drug monitoring | | + + + + | 2021-10-20 00:00 | Encounter for therapeutic | [facility] | | | drug monitoring | | + + + + | 2021-10-20 00:00 | Encounter for therapeutic | [facility] | | | drug monitoring | Emergency Department | + + + + | 2021-10-20 00:00 | 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[facility] | | | 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 | | + + + + | 2021-10-20 00:00 | shelter (current) use of | [facility] | | | 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 | | + + + + | 2021-10-20 00:00 | 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[facility] | | | 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 | | + + + + | 2021-10-20 00:00 | shelter (current) use of | [facility] | | | 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 | Emergency Department | + + + + | 2021-10-28 00:00 | acute deep venous | [facility] | | | thrombosis of right femoral | | | | vein (disorder) | | + + + + | 2021-10-28 00:00 | acute deep venous | [facility] | | | thrombosis of right femoral | | | | vein (disorder) | | + + + + | 2021-10-28 00:00 | acute deep venous | [facility] | | | thrombosis of right femoral | | | | vein (disorder) | | + + + + | 2021-10-28 00:00 | acute deep venous | [facility] | | | thrombosis of right femoral | Emergency Department | | | vein (disorder) | | + + + + | 2021-10-28 00:00 | Acute deep vein thrombosis | [facility] | | | (DVT) of femoral vein of | | | | right lower extremity | | + + + + | 2021-10-28 00:00 | Acute deep vein thrombosis | [facility] | | | (DVT) of femoral vein of | | | | right lower extremity | | + + + + | 2021-10-28 00:00 | Acute deep vein thrombosis | [facility] | | | (DVT) of femoral vein of | | | | right lower extremity | | + + + + | 2021-10-28 00:00 | Acute deep vein thrombosis | [facility] | | | (DVT) of femoral vein of | Emergency Department | | | right lower extremity | | + + + + | 2021-12-05 00:00 | angina | [facility] | + + + + | 2021-12-05 00:00 | angina | [facility] | + + + + | 2021-12-05 00:00 | angina | [facility] | + + + + | 2021-12-05 00:00 | angina | [facility] | | | | Emergency Department | + + + + | 2021-12-05 00:00 | Angina pectoris | [facility] | + + + + | 2021-12-05 00:00 | Angina pectoris | [facility] | + + + + | 2021-12-05 00:00 | Angina pectoris | [facility] | + + + + | 2021-12-05 00:00 | Angina pectoris | [facility] | | | | Emergency Department | + + + + | 2021-12-31 00:00 | Nausea | [facility] | + + + + | 2022-01-06 00:00 | aortic stenosis, | [facility] | | | non-rheumatic (disorder) | | + + + + | 2022-01-06 00:00 | aortic stenosis, | [facility] | | | non-rheumatic (disorder) | | + + + + | 2022-01-06 00:00 | aortic stenosis, | [facility] | | | non-rheumatic (disorder) | | + + + + | 2022-01-06 00:00 | Nonrheumatic aortic | [facility] | | | (valve) stenosis | | + + + + | 2022-01-06 00:00 | Nonrheumatic aortic | [facility] | | | (valve) stenosis | | + + + + | 2022-01-06 00:00 | Nonrheumatic aortic | [facility] | | | (valve) stenosis | | + + + + | 2022-01-07 00:00 | chronic pericarditis | [facility] | | | (disorder) | | + + + + | 2022-01-07 00:00 | chronic pericarditis | [facility] | | | (disorder) | | + + + + | 2022-01-07 00:00 | chronic pericarditis | [facility] | | | (disorder) | | + + + + | 2022-01-07 00:00 | Chronic pericarditis | [facility] | + + + + | 2022-01-07 00:00 | Chronic pericarditis | [facility] | + + + + | 2022-01-07 00:00 | Chronic pericarditis | [facility] | + + + + | 2022-01-15 00:00 | Hypertension | [facility] | + + + + | 2022-04-27 02:18:10 | COVID-19 | [employer] [facility] | | [facility] [employer] | + + + + Procedures + + + + | date | description | facility | + + + + | 2021-12-05 00:00 | COMPREHENSIVE METABOLIC | [facility] | | | PANEL - EXTERNAL | Emergency Department | + + + + | 2021-12-05 00:00 | CBC WITH AUTO DIFFERENTIAL | [facility] | | | - EXTERNAL | Emergency Department | + + + + | 2022-01-13 00:00 | CBC WITH AUTO DIFFERENTIAL | [facility] | | | - EXTERNAL | | + + + + | 2021-12-05 00:00 | LIPASE - EXTERNAL | [facility] | | | | Emergency Department | + + + + | 2021-12-05 00:00 | TROPONIN - EXTERNAL | [place] [facility] | | | | Emergency Department | + + + + | 2021-12-05 00:00 | PTT - EXTERNAL | [facility] | | | | Emergency Department | + + + + | 2021-12-05 00:00 | PT/INR - EXTERNAL | [facility] | | | | Emergency Department | + + + + | 2021-12-05 00:00 | COVID-19 HGS (IN-HOUSE | [facility] | | | TEST)- EXTERNAL | Emergency Department | + + + + | 2021-12-05 00:00 | COV2/FLUAB/RSV | [facility] | | | (XPERT)-EXTERNAL | Emergency Department | + + + + | 2021-12-05 00:00 | X-RAY CHEST 1 VIEW | [place] [facility] | | | PORTABLE | Emergency Department | + + + + | 2021-11-05 00:00 | CHG PROTHROMBIN TIME | [facility] | + + + + | 2021-11-11 00:00 | CHG PROTHROMBIN TIME | [facility] | + + + + | 2021-11-17 00:00 | CHG PROTHROMBIN TIME | [facility] | + + + + | 2021-11-24 00:00 | CHG PROTHROMBIN TIME | [facility] | + + + + | 2021-12-01 00:00 | CHG PROTHROMBIN TIME | [facility] | + + + + | 2021-12-07 00:00 | CHG PROTHROMBIN TIME | [facility] | + + + + | 2021-12-17 00:00 | CHG PROTHROMBIN TIME | [facility] | + + + + | 2021-12-29 00:00 | CHG PROTHROMBIN TIME | [facility] | + + + + | 2022-01-13 00:00 | CHG PROTHROMBIN TIME | [facility] | + + + + | 2022-01-25 00:00 | CHG PROTHROMBIN TIME | [facility] | + + + + | 2021-12-05 00:00 | HC EKG | [facility] | | | | Emergency Department | + + + + Results/Labs +--------+--------+ +---------+--------+---------+ | test | date | facility | value | unit | notes | +--------+--------+ +---------+--------+---------+ + + | Result panel 1 | + + + + + + + + + | Specimen | (no date) | [facility] | (missing) | (missing) | (missing) | | collection | | Clinic | | | | | (procedure) | | | | | | + + + + + + + + + | Result panel 2 | + + + + + + + + + | Specimen | (no date) | [place] | (missing) | (missing) | (missing) | | collection | | [facility] | | | | | (procedure) | [facility] | | | | | | | Emergency | | | | | | | Department | | | | + + + + + + + + + | Result panel 3 | + + + + + + + + + | Specimen | (no date) | [place] | (missing) | (missing) | (missing) | | collection | | [facility] | | | | | (procedure) | | [facility] | | | | | | | Emergency | | | | | | | Department | | | | + + + + + + + + + | Result panel 4 | + + + + + + + + + | Specimen | (no date) | [facility] | (missing) | (missing) | (missing) | | collection | | Clinic | | | | | (procedure) | | | | | | + + + + + + + + + | Result panel 5 | + + + + + + + + + | Specimen | (no date) | [facility] | (missing) | (missing) | (missing) | | collection | | Clinic | | | | | (procedure) | | | | | | + + + + + + + + + | Result panel 6 | + + + + + + + + + | Specimen | (no date) | [place] | (missing) | (missing) | (missing) | | collection | | Good | | | | | (procedure) | | [facility] | | | | | | | Emergency | | | | | | | Department | | | | + + + + + + + + + | Result panel 7 | + + + + + + + + + | Specimen | (no date) | [facility] | (missing) | (missing) | (missing) | | collection | | Clinic | | | | | (procedure) | | | | | | + + + + + + + + + | Result panel 8 | + + + + + + + + + | Specimen | (no date) | [facility] | (missing) | (missing) | (missing) | | collection | | Clinic | | | | | (procedure) | | | | | | + + + + + + + + + | Result panel 9 | + + + + + + + + + | Specimen | (no date) | [facility] | (missing) | (missing) | (missing) | | collection | | Clinic | | | | | (procedure) | | | | | | + + + + + + + + + | Result panel 10 | + + + + + + + + + | Specimen | (no date) | [facility] | (missing) | (missing) | (missing) | | collection | | Clinic | | | | | (procedure) | | | | | | + + + + + + + + + | Result panel 11 | + + + + + + + + + | Specimen | (no date) | [facility] | (missing) | (missing) | (missing) | | collection | | Clinic | | | | | (procedure) | | | | | | + + + + + + + + + | Result panel 12 | + + + + + + + + + | Specimen | (no date) | [facility] | (missing) | (missing) | (missing) | | collection | | Clinic | | | | | (procedure) | | | | | | + + + + + + + + + | Result panel 13 | + + + + + + + + + | Specimen | (no date) | [facility] | (missing) | (missing) | (missing) | | collection | | Clinic | | | | | (procedure) | | | | | | + + + + + + + + + | Result panel 14 | + + + + + + + + + | Specimen | (no date) | [place] | (missing) | (missing) | (missing) | | collection | | [facility] | | | | | (procedure) | | [facility] | | | | | | | Emergency | | | | | | | Department | | | | + + + + + + + + + | Result panel 15 | + + + + + + + + + | Specimen | (no date) | [place] | (missing) | (missing) | (missing) | | collection | | Good | | | | | (procedure) | | [facility] | | | | | | | Emergency | | | | | | | Department | | | | + + + + + + + + + | Result panel 16 | + + + + + + + + + | Specimen | (no date) | [place] | (missing) | (missing) | (missing) | | collection | | Good | | | | | (procedure) | | [facility] | | | | | | | Emergency | | | | | | | Department | | | | + + + + + + + + + | Result panel 17 | + + + + + + + + + | Specimen | (no date) | [place] | (missing) | (missing) | (missing) | | collection | | Good | | | | | (procedure) | | [facility] | | | | | | | Emergency | | | | | | | Department | | | | + + + + + + + + + | Result panel 18 | + + + + + + + + + | Specimen | (no date) | [place] | (missing) | (missing) | (missing) | | collection | | Good | | | | | (procedure) | | [facility] | | | | | | | Emergency | | | | | | | Department | | | | + + + + + + + + + | Result panel 19 | + + + + + + + + + | Specimen | (no date) | [place] | (missing) | (missing) | (missing) | | collection | | Good | | | | | (procedure) | | [facility] | | | | | | | Emergency | | | | | | | Department | | | | + + + + + + + + + | Result panel 20 | + + + + + + + + + | Specimen | (no date) | [place] | (missing) | (missing) | (missing) | | collection | | Good | | | | | (procedure) | | [facility] | | | | | | | Emergency | | | | | | | Department | | | | + + + + + + + + + | Result panel 21 | + + + + + +-------+ + + | INR POCX | 2021-11-05 | [facility] | 1.4 | (missing) | (missing) | | | 17:00 | Clinic | | | | + + + +-------+ + + + + | Result panel 22 | + + + + + +-----+ + + | INR POCX | 2021-11-11 | [facility] | 3 | (missing) | (missing) | | | 19:23 | Clinic | | | | + + + +-----+ + + + + | Result panel 23 | + + + + + +-------+ + + | INR POCX | 2021-11-17 | [facility] | 2.5 | (missing) | (missing) | | | 18:01 | Clinic | | | | + + + +-------+ + + + + | Result panel 24 | + + + + + +-------+ + + | INR POCX | 2021-11-24 | [facility] | 3.4 | (missing) | (missing) | | | 18:17 | Clinic | | | | + + + +-------+ + + + + | Result panel 25 | + + + + + +-------+ + + | INR POCX | 2021-12-01 | [facility] | 1.3 | (missing) | (missing) | | | 19:29 | Clinic | | | | + + + +-------+ + + + + | Result panel 26 | + + + + + + + + + | | 2021-12-05 | [facility] | (missing) | (missing) | (missing) | | (unavailable | 07:13:55 | [facility] | | | | | ) | | [facility] | | | | | | | Emergency | | | | | | | Department | | | | + + + + + + + + + | Result panel 27 | + + +-------+ + +-------+--------+ + | WBC | 2021-12-05 | [place] | 9.5 | K/uL | (missing) | | | 07:38 | [facility] | | | | | | | [facility] | | | | | | | Emergency | | | | | | | Department | | | | +-------+ + +-------+--------+ + + + | Result panel 28 | + + +-------+ + +-------+ + + | RBC | 2021-12-05 | [place] | 4.3 | (missing) | (missing) | | | 07:38 | [facility] | | | | | | | [facility] | | | | | | | Emergency | | | | | | | Department | | | | +-------+ + +-------+ + + + + | Result panel 29 | + + +-------+ + +--------+--------+ + | Hgb | 2021-12-05 | [place] | 12.6 | g/dL | (missing) | | | 07:38 | [facility] | | | | | | | [facility] | | | | | | | Emergency | | | | | | | Department | | | | +-------+ + +--------+--------+ + + + | Result panel 30 | + + +-------+ + +--------+-----+ + | HCT | 2021-12-05 | [place] | 37.9 | % | (missing) | | | 07:38 | [facility] | | | | | | [facility] | | | | | | | Emergency | | | | | | | Department | | | | +-------+ + +--------+-----+ + + + | Result panel 31 | + + + + + +--------+------+ + | Mean | 2021-12-05 | [place] | 89.1 | fl | (missing) | | Corpuscular | 07:38 | [facility] | | | | | Volume | | [facility] | | | | | | | Emergency | | | | | | | Department | | | | + + + +--------+------+ + + + | Result panel 32 | + + + + + +--------+------+ + | Mean | 2021-12-05 | [place] | 29.7 | pg | (missing) | | Corpuscular | 07:38 | [facility] | | | | | Hemoglobin | | [facility] | | | | | | | Emergency | | | | | | | Department | | | | + + + +--------+------+ + + + | Result panel 33 | + + + + + +--------+--------+ + | Mean | 2021-12-05 | [place] | 33.3 | g/dL | (missing) | | Corpuscular | 07:38 | Good | | | | | Hemoglobin | | [facility] | | | | | Conc | | Emergency | | | | | | | Department | | | | + + + +--------+--------+ + + + | Result panel 34 | + + + + + +--------+-----+ + | Red Cell | 2021-12-05 | [place] | 14.8 | % | (missing) | | Distribution | 07:38 | Good | | | | | Width | | [facility] | | | | | | | Emergency | | | | | | | Department | | | | + + + +--------+-----+ + + + | Result panel 35 | + + + + + +-------+--------+ + | Platelet | 2021-12-05 | [place] | 259 | K/uL | (missing) | | Count | 07:38 | [facility] | | | | | | | [facility] | | | | | | | Emergency | | | | | | | Department | | | | + + + +-------+--------+ + + + | Result panel 36 | + + + + + +--------+-----+ + | Neutrophils | 2021-12-05 | [place] | 59.9 | % | (missing) | | Auto % | 07:38 | [facility] | | | | | | | [facility] | | | | | | | Emergency | | | | | | | Department | | | | + + + +--------+-----+ + + + | Result panel 37 | + + + + + +--------+-----+ + | Lymphocytes | 2021-12-05 | [place] | 24.7 | % | (missing) | | Auto % | 07:38 | [facility] | | | | | | | [facility] | | | | | | | Emergency | | | | | | | Department | | | | + + + +--------+-----+ + + + | Result panel 38 | + + + + + +-------+-----+ + | Monocytes | 2021-12-05 | [place] | 5.5 | % | (missing) | | Auto % | 07:38 | [facility] | | | | | | | [facility] | | | | | | | Emergency | | | | | | | Department | | | | + + + +-------+-----+ + + + | Result panel 39 | + + + + + +-------+-----+ + | Eosinophils | 2021-12-05 | [facility] | 9.2 | % | (missing) | | Auto % | 07:38 | [facility] | | | | | | [facility] | | | | | | | Emergency | | | | | | | Department | | | | + + + +-------+-----+ + + + | Result panel 40 | + + + + + +-------+-----+ + | Basophils | 2021-12-05 | [facility] | 0.7 | % | (missing) | | Auto % | 07:38 | [facility] | | | | | | [facility] | | | | | | | Emergency | | | | | | | Department | | | | + + + +-------+-----+ + + + | Result panel 41 | + + + + + +-------+--------+ + | Neutrophils | 2021-12-05 | [place] | 5.7 | K/uL | (missing) | | Auto # | 07:38 | [facility] | | | | | | | [facility] | | | | | | | Emergency | | | | | | | Department | | | | + + + +-------+--------+ + + + | Result panel 42 | + + + + + +-------+--------+ + | Lymphocytes | 2021-12-05 | [place] | 2.3 | K/uL | (missing) | | Auto # | 07:38 | [facility] | | | | | | | [facility] | | | | | | | Emergency | | | | | | | Department | | | | + + + +-------+--------+ + + + | Result panel 43 | + + + + + +-------+--------+ + | Monocytes | 2021-12-05 | [place] | 0.5 | K/uL | (missing) | | Auto # | 07:38 | [facility] | | | | | | | [facility] | | | | | | | Emergency | | | | | | | Department | | | | + + + +-------+--------+ + + + | Result panel 44 | + + + + + +-------+--------+ + | Eosinophils | 2021-12-05 | [place] | 0.9 | K/uL | (missing) | | Auto # | 07:38 | [facility] | | | | | | | [facility] | | [facility] | [facility] | | | | | | | Department | | | | + + + +-------+--------+ + + + | Result panel 45 | + + + + + +-------+--------+ + | Basophils | 2021-12-05 | [place] | 0.1 | K/uL | (missing) | | Auto # | 07:38 | [facility] | | | | | | | [facility] | | | | | | Emergency | | | | | | | Department | | | | + + + +-------+--------+ + + + | Result panel 46 | + + + + + + + + + | | 2021-12-05 | [place] | (missing) | (missing) | (missing) | | (unavailable | 07:38 | Good | | | | | ) | | [facility] | | | | | | [facility] | | | | | | | Department | | | | + + + + + + + + + | Result panel 47 | + + + + + + + + + | | 2021-12-05 | [facility] | Abnormal | (missing) | (missing) | | (unavailable | 07:38 | Good | | | | | ) | | [facility] | | | | | | Emergency | | | | | | | Department | | | | + + + + + + + + + | Result panel 48 | + + + + + + + + + | | 2021-12-05 | [place] | (missing) | (missing) | (missing) | | (unavailable | 08:35:31 | [facility] | | | | | ) | | [facility] | | | | [facility] | [facility] | | | | | | | Department | | | | + + + + + + + + + | Result panel 49 | + + +---------+ + + + + + | Chest | 2021-12-05 | [place] | (missing) | (missing) | (missing) | | | 08:35:31 | [facility] | | | | | | | [facility] | | | | | | | Emergency | | | | | | | Department | | | | +---------+ + + + + + + + | Result panel 50 | + + + + + + + + + | | 2021-12-05 | [place] | (missing) | (missing) | (missing) | | (unavailable | 08:39 | Good | | | | | ) | | [facility] | | | | | | | Emergency | | | | | | | Department | | | | + + + + + + + + + | Result panel 51 | + + + + + + + + + | | 2021-12-05 | [place] | Abnormal | (missing) | (missing) | | (unavailable | 08:39 | Good | | | | | ) | | [facility] | | | | | | Emergency | | | | | | | Department | | | | + + + + + + + + + | Result panel 52 | + + + + + +-------+ + + | Sodium Lvl | 2021-12-05 | [place] | 141 | mmol/L | (missing) | | | 08:39 | [facility] | | | | | | | [facility] | | | | | | | Emergency | | | | | | | Department | | | | + + + +-------+ + + + + | Result panel 53 | + + + + + +-------+ + + | Potassium | 2021-12-05 | [place] | 4.5 | (missing) | (missing) | | Lvl | 08:39 | [facility] | | | | | | | [facility] | | | | | | Emergency | | | | | | | Department | | | | + + + +-------+ + + + + | Result panel 54 | + + + + + +-------+ + + | Chloride | 2021-12-05 | [place] | 107 | mmol/L | (missing) | | Level | 08:39 | [facility] | | | | | | | [facility] | | | | | | Emergency | | | | | | | Department | | | | + + + +-------+ + + + + | Result panel 55 | + + +-------+ + +------+ + + | CO2 | 2021-12-05 | [place] | 22 | mmol/L | (missing) | | | 08:39 | [facility] | | | | | | | [facility] | | | | | | Emergency | | | | | | | Department | | | | +-------+ + +------+ + + + + | Result panel 56 | + + + + + +--------+ + + | Anion Gap | 2021-12-05 | [place] | 12.0 | (missing) | (missing) | | | 08:39 | [facility] | | | | | | | [facility] | | | | | | Emergency | | | | | | | Department | | | | + + + +--------+ + + + + | Result panel 57 | + + + + + +-------+---------+ + | Glucose, | 2021-12-05 | [place] | 140 | mg/dL | (missing) | | Random | 08:39 | [facility] | | | | | | | [facility] | | | | | | | Emergency | | | | | | | Department | | | | + + + +-------+---------+ + + + | Result panel 58 | + + + + + +------+---------+ + | Blood Urea | 2021-12-05 | [place] | 17 | mg/dL | (missing) | | Nitrogen | 08:39 | [facility] | | | | | | | [facility] | | [facility] | | Emergency | | | | | | | Department | | | | + + + +------+---------+ + + + | Result panel 59 | + + + + + +--------+---------+ + | Creatinine | 2021-12-05 | [place] | 0.73 | mg/dL | (missing) | | | 08:39 | [facility] | | | | | | | [facility] | | | [facility] | | [facility] | | | | | | | Department | | | | + + + +--------+---------+ + + + | Result panel 60 | + + + + + +-------+ + + | GFR | 2021-12-05 | [place] | >60 | (missing) | (missing) | | Estimated | 08:39 | [facility] | | | | | | | [facility] | | | | | | [facility] | | | | | | | Department | | | | + + + +-------+ + + + + | Result panel 61 | + + + + + +-------+---------+ + | Calcium Lvl | 2021-12-05 | [place] | 8.5 | mg/dL | (missing) | | | 08:39 | [facility] | | | | | | | [facility] | | | | | | | [facility] | | | | | | | Department | | | | + + + +-------+---------+ + + + | Result panel 62 | + + + + + +-------+---------+ + | Corrected | 2021-12-05 | [place] | 8.7 | mg/dL | (missing) | | Calcium for | 08:39 | [facility] | | | | | [facility] | | [facility] | | | | | | | Emergency | | | | | | | Department | | | | + + + +-------+---------+ + + + | Result panel 63 | + + + + + +-------+ + + | Total | 2021-12-05 | [place] | 7.2 | (missing) | (missing) | | Protein | 08:39 | [facility] | | | | | | | [facility] | | | | | | | [facility] | | | | | | | Department | | | | + + + +-------+ + + + + | Result panel 64 | + + + + + +-------+ + + | Albumin | 2021-12-05 | [place] | 3.7 | (missing) | (missing) | | | 08:39 | [facility] | | | | | | | [facility] | | | | | | | [facility] | | | | | | | Department | | | | + + + +-------+ + + + + | Result panel 65 | + + + + + +-------+ + + | Globulin | 2021-12-05 | [place] | 3.5 | (missing) | (missing) | | | 08:39 | [facility] | | | | | | | [facility] | | | | | | | [facility] | | | | | | | Department | | | | + + + +-------+ + + + + | Result panel 66 | + + + + + +-------+ + + | | 2021-12-05 | [place] | 1.1 | (missing) | (missing) | | Albumin/Glob | 08:39 | Good | | | | | ulin Ratio | | [facility] | | | | | | | Emergency | | | | | | | Department | | | | + + + +-------+ + + + + | Result panel 67 | + + + + + +-------+---------+ + | Bilirubin | 2021-12-05 | [place] | 0.3 | mg/dL | (missing) | | Total | 08:39 | [facility] | | | | | | | [facility] | | | | | | [facility] | | | | | | | Department | | | | + + + +-------+---------+ + + + | Result panel 68 | + + + + + +------+ + + | AST/SGOT | 2021-12-05 | [place] | 17 | (missing) | (missing) | | | 08:39 | [facility] | | | | | | | [facility] | | | | | | | Emergency | | | | | | | Department | | | | + + + +------+ + + + + | Result panel 69 | + + + + + +------+ + + | ALT/SGPT | 2021-12-05 | [place] | 26 | (missing) | (missing) | | | 08:39 | [facility] | | | | | | | [facility] | | | | | | | Emergency | | | | | | | Department | | | | + + + +------+ + + + + | Result panel 70 | + + + + + +-------+ + + | Alkaline | 2021-12-05 | [place] | 131 | (missing) | (missing) | | Phosphatase | 08:39 | [facility] | | | | | | | [facility] | | | | | | | Emergency | | | | | | | Department | | | | + + + +-------+ + + + + | Result panel 71 | + + + + + + + + + | | 2021-12-05 | [place] | (missing) | (missing) | (missing) | | (unavailable | 08:39 | [facility] | | | | | ) | | [facility] | | | | | | [facility] | | | | | | | Department | | | | + + + + + + + + + | Result panel 72 | + + + + + + + + + | | 2021-12-05 | [place] | Abnormal | (missing) | (missing) | | (unavailable | 08:39 | [facility] | | | | | ) | | [facility] | | | | | | | [facility] | | | | | | | Department | | | | + + + + + + + + + | Result panel 73 | + + + + + +--------+---------+ + | Troponin I | 2021-12-05 | [place] | 0.09 | ng/mL | (missing) | | | 08:39 | [facility] | | | | | | | [facility] | | | | | | | Emergency | | | | | | | Department | | | | + + + +--------+---------+ + + + | Result panel 74 | + + + + + + + + + | | 2021-12-05 | [place] | (missing) | (missing) | (missing) | | (unavailable | 08:39 | Good | | | | | ) | | [facility] | | | | | | | Emergency | | | | | | | Department | | | | + + + + + + + + + | Result panel 75 | + + + + + + + + + | | 2021-12-05 | [place] | Abnormal | (missing) | (missing) | | (unavailable | 08:39 | Good | | | | | ) | | [facility] | | | | | | | Emergency | | | | | | | Department | | | | + + + + + + + + + | Result panel 76 | + + + + + +------+-------+ + | Lipase | 2021-12-05 | [place] | 71 | U/L | (missing) | | | 08:39 | [facility] | | | | | | | [facility] | | | | | | | Emergency | | | | | | | Department | | | | + + + +------+-------+ + + + | Result panel 77 | + + +------+ + +--------+ + + | PT | 2021-12-05 | [place] | 23.3 | (missing) | (missing) | | | 09:15 | [facility] | | | | | | | [facility] | | | | | | | Emergency | | | | | | | Department | | | | +------+ + +--------+ + + + + | Result panel 78 | + + +---------+ + +--------+ + + | Ratio | 2021-12-05 | [facility] | 1.82 | (missing) | (missing) | | | 09:15 | [facility] | | | | | | | [facility] | | | | | | | [facility] | | | | | | | Department | | | | +---------+ + +--------+ + + + + | Result panel 79 | + + +-------+ + +-------+ + + | INR | 2021-12-05 | [facility] | 2.2 | (missing) | (missing) | | | 09:15 | [facility] | | | | | | | [facility] | | | | | | | Emergency | | | | | | | Department | | | | +-------+ + +-------+ + + + + | Result panel 80 | + + + + + + + + + | | 2021-12-05 | [place] | (missing) | (missing) | (missing) | | (unavailable | 09:15 | Good | | | | | ) | | [facility] | | | | | | | Emergency | | | | | | | Department | | | | + + + + + + + + + | Result panel 81 | + + + + + + + + + | | 2021-12-05 | [place] | Abnormal | (missing) | (missing) | | (unavailable | 09:15 | Good | | | | | ) | | [facility] | | | | | | | Emergency | | | | | | | Department | | | | + + + + + + + + + | Result panel 82 | + + +-------+ + +--------+ + + | PTT | 2021-12-05 | [place] | 40.4 | (missing) | (missing) | | | 09:15 | [facility] | | | | | | | [facility] | | | | | | | Emergency | | | | | | | Department | | | | +-------+ + +--------+ + + + + | Result panel 83 | + + + + + + + + + | | 2021-12-05 | [place] | (missing) | (missing) | (missing) | | (unavailable | 09:15 | [facility] | | | | | ) | | [facility] | | | | | | | Emergency | | | | | | | Department | | | | + + + + + + + + + | Result panel 84 | + + + + + + + + + | | 2021-12-05 | [facility] | Abnormal | (missing) | (missing) | | (unavailable | 09:15 | Good | | | | | ) | | [facility] | | | | | | Emergency | | | | | | | Department | | | | + + + + + + + + + | Result panel 85 | + + + + + + + + + | | 2021-12-05 | [place] | (missing) | (missing) | (missing) | | (unavailable | 09:31:22 | Good | | | | | ) | | [facility] | | | | | | | Emergency | | | | | | | Department | | | | + + + + + + + + + | Result panel 86 | + + + + + + + + + | | 2021-12-05 | [place] | (missing) | (missing) | (missing) | | (unavailable | 09:31:22 | Good | | | | | ) | | [facility] | | | | | | | Emergency | | | | | | | Department | | | | + + + + + + + + + | Result panel 87 | + + + + + +-------+ + + | COVID - 19 | 2021-12-05 | [place] | TNP | (missing) | (missing) | | HGS - | 10:13 | Good | | | | | External | | [facility] | | | | | | | Emergency | | | | | | | Department | | | | + + + +-------+ + + + + | Result panel 88 | + + + + + +-------+ + + | COVID 19 | 2021-12-05 | [place] | TNP | (missing) | (missing) | | Internal | 10:13 | Good | | | | | Control - | | [facility] | | | | | External | | Emergency | | | | | | | Department | | | | + + + +-------+ + + + + | Result panel 89 | + + + + + + + + + | | 2021-12-05 | [place] | (missing) | (missing) | (missing) | | (unavailable | 10:13 | Good | | | | | ) | | [facility] | | | | | | | Emergency | | | | | | | Department | | | | + + + + + + + + + | Result panel 90 | + + + + + + + + + | FLU A - EXT | 2021-12-05 | [place] | NEGATIVE | (missing) | (missing) | | | 11:22 | [facility] | | | | | | | [facility] | | | | | | | Emergency | | | | | | | Department | | | | + + + + + + + + + | Result panel 91 | + + + + + + + + + | FLU B - EXT | 2021-12-05 | [facility] | NEGATIVE | (missing) | (missing) | | | 11:22 | [facility] | | | | | | | [facility] | | | | | | | Emergency | | | | | | | Department | | | | + + + + + + + + + | Result panel 92 | + + + + + + + + + | RSV - EXT | 2021-12-05 | [facility] | NEGATIVE | (missing) | (missing) | | | 11:22 | [facility] | | | | | | | [facility] | | | | | | | Emergency | | | | | | | Department | | | | + + + + + + + + + | Result panel 93 | + + + + + + + + + | SARS-COV2 - | 2021-12-05 | [facility] | NEGATIVE | (missing) | (missing) | | EXT | 11:22 | [facility] | | | | | | | [facility] | | | | | | | Emergency | | | | | | | Department | | | | + + + + + + + + + | Result panel 94 | + + + + + + + + + | | 2021-12-05 | [place] | (missing) | (missing) | (missing) | | (unavailable | 11:22 | Good | | | | | ) | | [facility] | | | | | | | Emergency | | | | | | | Department | | | | + + + + + + + + + | Result panel 95 | + + + + + +-----+ + + | INR POCX | 2021-12-07 | [facility] | 2 | (missing) | (missing) | | | 19:27 | Clinic | | | | + + + +-----+ + + + + | Result panel 96 | + + + + + +-------+ + + | INR POCX | 2021-12-17 | [facility] | 3.0 | (missing) | (missing) | | | 19:09 | Clinic | | | | + + + +-------+ + + + + | Result panel 97 | + + + + + +-------+ + + | INR POCX | 2021-12-29 | [facility] | 4.1 | (missing) | (missing) | | | 19:19 | Clinic | | | | + + + +-------+ + + + + | Result panel 98 | + + + + + +-------+ + + | INR POCX | 2022-01-13 | [facility] | 4.0 | (missing) | (missing) | | | 17:03 | Clinic | | | | + + + +-------+ + + + + | Result panel 99 | + + +-------+ + +-------+--------+ + | WBC | 2022-01-13 | [facility] | 7.4 | K/uL | (missing) | | | 19:12 | Medicine | | | | +-------+ + +-------+--------+ + + + | Result panel 100 | + + +-------+ + +-------+ + + | RBC | 2022-01-13 | [facility] | 4.4 | (missing) | (missing) | | | 19:12 | Medicine | | | | +-------+ + +-------+ + + + + | Result panel 101 | + + +-------+ + +--------+--------+ + | Hgb | 2022-01-13 | [facility] | 13.1 | g/dL | (missing) | | | 19:12 | Medicine | | | | +-------+ + +--------+--------+ + + + | Result panel 102 | + + +-------+ + +--------+-----+ + | HCT | 2022-01-13 | [facility] | 39.1 | % | (missing) | | | 19:12 | Medicine | | | | +-------+ + +--------+-----+ + + + | Result panel 103 | + + + + + +--------+------+ + | Mean | 2022-01-13 | [facility] | 89.6 | fl | (missing) | | Corpuscular | 19:12 | Medicine | | | | | Volume | | | | | | + + + +--------+------+ + + + | Result panel 104 | + + + + + +--------+------+ + | Mean | 2022-01-13 | [facility] | 30.0 | pg | (missing) | | Corpuscular | 19:12 | Medicine | | | | | Hemoglobin | | | | | | + + + +--------+------+ + + + | Result panel 105 | + + + + + +--------+--------+ + | Mean | 2022-01-13 | [facility] | 33.4 | g/dL | (missing) | | Corpuscular | 19:12 | Medicine | | | | | Hemoglobin | | | | | | | Conc | | | | | | + + + +--------+--------+ + + + | Result panel 106 | + + + + + +--------+-----+ + | Red Cell | 2022-01-13 | [facility] | 15.1 | % | (missing) | | Distribution | 19:12 | Medicine | | | | | Width | | | | | | + + + +--------+-----+ + + + | Result panel 107 | + + + + + +-------+--------+ + | Platelet | 2022-01-13 | [facility] | 251 | K/uL | (missing) | | Count | 19:12 | Medicine | | | | + + + +-------+--------+ + + + | Result panel 108 | + + + + + +--------+-----+ + | Neutrophils | 2022-01-13 | [facility] | 54.3 | % | (missing) | | Auto % | 19:12 | Medicine | | | | + + + +--------+-----+ + + + | Result panel 109 | + + + + + +--------+-----+ + | Lymphocytes | 2022-01-13 | [facility] | 33.5 | % | (missing) | | Auto % | 19:12 | Medicine | | | | + + + +--------+-----+ + + + | Result panel 110 | + + + + + +-------+-----+ + | Monocytes | 2022-01-13 | [facility] | 4.5 | % | (missing) | | Auto % | 19:12 | Medicine | | | | + + + +-------+-----+ + + + | Result panel 111 | + + + + + +-------+-----+ + | Eosinophils | 2022-01-13 | [facility] | 6.9 | % | (missing) | | Auto % | 19:12 | Medicine | | | | + + + +-------+-----+ + + + | Result panel 112 | + + + + + +-------+-----+ + | Basophils | 2022-01-13 | [facility] | 0.8 | % | (missing) | | Auto % | 19:12 | Medicine | | | | + + + +-------+-----+ + + + | Result panel 113 | + + + + + +-------+--------+ + | Neutrophils | 2022-01-13 | [facility] | 4.0 | K/uL | (missing) | | Auto # | 19:12 | Medicine | | | | + + + +-------+--------+ + + + | Result panel 114 | + + + + + +-------+--------+ + | Lymphocytes | 2022-01-13 | [facility] | 2.5 | K/uL | (missing) | | Auto # | 19:12 | Medicine | | | | + + + +-------+--------+ + + + | Result panel 115 | + + + + + +-------+--------+ + | Monocytes | 2022-01-13 | [facility] | 0.3 | K/uL | (missing) | | Auto # | 19:12 | Medicine | | | | + + + +-------+--------+ + + + | Result panel 116 | + + + + + +-------+--------+ + | Eosinophils | 2022-01-13 | [facility] | 0.5 | K/uL | (missing) | | Auto # | 19:12 | Medicine | | | | + + + +-------+--------+ + + + | Result panel 117 | + + + + + +-------+--------+ + | Basophils | 2022-01-13 | [facility] | 0.1 | K/uL | (missing) | | Auto # | 19:12 | Medicine | | | | + + + +-------+--------+ + + + | Result panel 118 | + + + + + + + + + | | 2022-01-13 | [facility] | (missing) | (missing) | (missing) | | (unavailable | 19:12 | Medicine | | | | | ) | | | | | | + + + + + + + + + | Result panel 119 | + + + + + + + + + | | 2022-01-13 | [facility] | Abnormal | (missing) | (missing) | | (unavailable | 19:12 | Medicine | | | | | ) | | | | | | + + + + + + + + + | Result panel 120 | + + + + + +-------+---------+ + | | 2022-01-14 | [facility] | 1.9 | mg/dL | (missing) | | (unavailable | 22:20 | [facility] | | | | + + + +-------+---------+ + + + | Result panel 121 | + + + + + +---------+ + + | | 2022-01-14 | [facility] | 0.010 | (missing) | (missing) | | (unavailable | 22:20 | [facility] | | | | + + + +---------+ + + + + | Result panel 122 | + + + + + +-------+ + + | INR POCX | 2022-01-25 | [facility] | 2.6 | (missing) | (missing) | | | 16:09 | Clinic | | | | + + + +-------+ + + + + | Result panel 123 | + + + + + +-------+ + + | | 2022-06-07 | [facility] | 7.8 | (missing) | (missing) | | (unavailable | 21:10 | [facility] | | | | + + + +-------+ + + + + | Result panel 124 | + + + + + +--------+ + + | | 2022-06-07 | [facility] | 3.89 | (missing) | (missing) | | (unavailable | 21:10 | [facility] | | | | + + + +--------+ + + + + | Result panel 125 | + + + + + +--------+ + + | | 2022-06-07 | [facility] | 12.3 | (missing) | (missing) | | (unavailable | 21:10 | [facility] | | | | + + + +--------+ + + + + | Result panel 126 | + + + + + +--------+ + + | | 2022-06-07 | [facility] | 36.8 | (missing) | (missing) | | (unavailable | 21:10 | [facility] | | | | + + + +--------+ + + + + | Result panel 127 | + + + + + +--------+ + + | | 2022-06-07 | [facility] | 94.6 | (missing) | (missing) | | (unavailable | 21:10 | [facility] | | | | + + + +--------+ + + + + | Result panel 128 | + + + + + +--------+ + + | | 2022-06-07 | [facility] | 31.7 | (missing) | (missing) | | (unavailable | 21:10 | [facility] | | | | + + + +--------+ + + + + | Result panel 129 | + + + + + +--------+ + + | | 2022-06-07 | [facility] | 33.5 | (missing) | (missing) | | (unavailable | 21:10 | [facility] | | | | + + + +--------+ + + + + | Result panel 130 | + + + + + +--------+ + + | | 2022-06-07 | [facility] | 14.9 | (missing) | (missing) | | (unavailable | 21:10 | [facility] | | | | + + + +--------+ + + + + | Result panel 131 | + + + + + +-------+ + + | | 2022-06-07 | [facility] | 209 | (missing) | (missing) | | (unavailable | 21:10 | [facility] | | | | + + + +-------+ + + + + | Result panel 132 | + + + + + +--------+ + + | | 2022-06-07 | [facility] | 61.6 | (missing) | (missing) | | (unavailable | 21:10 | [facility] | | | | + + + +--------+ + + + + | Result panel 133 | + + + + + +--------+ + + | | 2022-06-07 | [facility] | 31.0 | (missing) | (missing) | | (unavailable | 21:10 | [facility] | | | | + + + +--------+ + + + + | Result panel 134 | + + + + + +-------+ + + | | 2022-06-07 | [facility] | 5.2 | (missing) | (missing) | | (unavailable | 21:10 | [facility] | | | | + + + +-------+ + + + + | Result panel 135 | + + + + + +-------+ + + | | 2022-06-07 | [facility] | 1.1 | (missing) | (missing) | | (unavailable | 21:10 | [facility] | | | | + + + +-------+ + + + + | Result panel 136 | + + + + + +-------+ + + | | 2022-06-07 | [facility] | 1.1 | (missing) | (missing) | | (unavailable | 21:10 | [facility] | | | | + + + +-------+ + + + + | Result panel 137 | + + + + + +--------+ + + | | 2022-06-07 | [facility] | 23.0 | (missing) | (missing) | | (unavailable | 21:10 | [facility] | | | | + + + +--------+ + + + + | Result panel 138 | + + + + + +--------+ + + | | 2022-06-07 | [facility] | 2.09 | (missing) | (missing) | | (unavailable | 21:10 | [facility] | | | | + + + +--------+ + + + + | Result panel 139 | + + + + + +-------+---------+ + | | 2022-06-07 | [facility] | 157 | mg/dL | (missing) | | (unavailable | 21:10 | [facility] | | | | + + + +-------+---------+ + + + | Result panel 140 | + + + + + +------+---------+ + | | 2022-06-07 | [facility] | 20 | mg/dL | (missing) | | (unavailable | 21:10 | [facility] | | | | + + + +------+---------+ + + + | Result panel 141 | + + + + + +--------+---------+ + | | 2022-06-07 | [facility] | 0.92 | mg/dL | (missing) | | (unavailable | 21:10 | [facility] | | | | + + + +--------+---------+ + + + | Result panel 142 | + + + + + +------+ + + | | 2022-06-07 | [facility] | 63 | (missing) | (missing) | | (unavailable | 21:10 | [facility] | | | | + + + +------+ + + + + | Result panel 143 | + + + + + +---------+ + + | | 2022-06-07 | [facility] | 21.73 | (missing) | (missing) | | (unavailable | 21:10 | [facility] | | | | + + + +---------+ + + + + | Result panel 144 | + + + + + +-------+ + + | | 2022-06-07 | [facility] | 138 | (missing) | (missing) | | (unavailable | 21:10 | [facility] | | | | + + + +-------+ + + + + | Result panel 145 | + + + + + +-------+ + + | | 2022-06-07 | [facility] | 3.6 | (missing) | (missing) | | (unavailable | 21:10 | [facility] | | | | + + + +-------+ + + + + | Result panel 146 | + + + + + +-------+ + + | | 2022-06-07 | [facility] | 101 | (missing) | (missing) | | (unavailable | 21:10 | [facility] | | | | + + + +-------+ + + + + | Result panel 147 | + + + + + +------+ + + | | 2022-06-07 | [facility] | 26 | (missing) | (missing) | | (unavailable | 21:10 | [facility] | | | | + + + +------+ + + + + | Result panel 148 | + + + + + +--------+ + + | | 2022-06-07 | [facility] | 14.6 | (missing) | (missing) | | (unavailable | 21:10 | [facility] | | | | + + + +--------+ + + + + | Result panel 149 | + + + + + +-------+---------+ + | | 2022-06-07 | [facility] | 8.4 | mg/dL | (missing) | | (unavailable | 21:10 | [facility] | | | | + + + +-------+---------+ + + + | Result panel 150 | + + + + + +-------+ + + | | 2022-06-07 | [facility] | 7.5 | (missing) | (missing) | | (unavailable | 21:10 | [facility] | | | | + + + +-------+ + + + + | Result panel 151 | + + + + + +-------+ + + | | 2022-06-07 | [facility] | 3.4 | (missing) | (missing) | | (unavailable | 21:10 | [facility] | | | | + + + +-------+ + + + + | Result panel 152 | + + + + + +-------+ + + | | 2022-06-07 | [facility] | 4.1 | (missing) | (missing) | | (unavailable | 21:10 | [facility] | | | | + + + +-------+ + + + + | Result panel 153 | + + + + + +--------+ + + | | 2022-06-07 | [facility] | 0.83 | (missing) | (missing) | | (unavailable | 21:10 | [facility] | | | | + + + +--------+ + + + + | Result panel 154 | + + + + + +-------+ + + | | 2022-06-07 | [facility] | 0.4 | (missing) | (missing) | | (unavailable | 21:10 | [facility] | | | | + + + +-------+ + + + + | Result panel 155 | + + + + + +------+ + + | | 2022-06-07 | [facility] | 28 | (missing) | (missing) | | (unavailable | 21:10 | [facility] | | | | + + + +------+ + + + + | Result panel 156 | + + + + + +------+ + + | | 2022-06-07 | [facility] | 45 | (missing) | (missing) | | (unavailable | 21:10 | [facility] | | | | + + + +------+ + + + + | Result panel 157 | + + + + + +-------+ + + | | 2022-06-07 | [facility] | 128 | (missing) | (missing) | | (unavailable | 21:10 | [facility] | | | | + + + +-------+ + + + + | Result panel 158 | + + + + + +-------+ + + | | 2022-06-07 | [facility] | 4.7 | (missing) | (missing) | | (unavailable | 21:10 | [facility] | | | | + + + +-------+ + + Social History + + + + | date | description | facility | + + + + | 2018-11-16 00:00 | Never smoked tobacco | [facility] | + + + + | 2018-11-16 00:00 | Never smoked tobacco | [facility] | + + + + | 2018-11-16 00:00 | Never smoked tobacco | [facility] | + + + + | 2018-11-16 00:00 | Never smoked tobacco | [facility] | + + + + Vital Signs + + + +---------+ | date | measurement | value | units | + + + +---------+ | 2021-11-24 00:00 | BMI | 23.08 | kg/m2 | + + + +---------+ | 2021-11-24 00:00 | BP_diastolic | 68 | mmHg | + + + +---------+ | 2021-11-24 00:00 | BP_systolic | 104 | mmHg | + + + +---------+ | 2021-11-24 00:00 | height_metric | 167.6 | cm | + + + +---------+ | 2021-11-24 00:00 | height_standard | 65.98 | in | + + + +---------+ | 2021-11-24 00:00 | weight_metric | 64.86 | kg | + + + +---------+ | 2021-11-24 00:00 | weight_standard | 143 | lb | + + + +---------+ | 2021-12-05 00:00 | BP_diastolic | 60 | mmHg | + + + +---------+ | 2021-12-05 00:00 | BP_systolic | 123 | mmHg | + + + +---------+ | 2021-12-05 00:00 | heart_rate | 64 | /min | + + + +---------+ | 2021-12-05 00:00 | height_metric | 167.6 | cm | + + + +---------+ | 2021-12-05 00:00 | height_standard | 65.98 | in | + + + +---------+ | 2021-12-05 00:00 | o2_saturation | 99 | % | + + + +---------+ | 2021-12-05 00:00 | respiration_rate | 22 | /min | + + + +---------+ | 2021-12-05 00:00 | temperature_metric | 36.78 | C | | | | | | + + + +---------+ | 2021-12-05 00:00 | | 98.2 | F | | | temperature_standar | | | | | d | | | + + + +---------+ | 2021-12-31 00:00 | BMI | 25.9 | kg/m2 | + + + +---------+ | 2021-12-31 00:00 | BP_diastolic | 62 | mmHg | + + + +---------+ | 2021-12-31 00:00 | BP_systolic | 141 | mmHg | + + + +---------+ | 2021-12-31 00:00 | heart_rate | 65 | /min | + + + +---------+ | 2021-12-31 00:00 | height_metric | 160.02 | cm | + + + +---------+ | 2021-12-31 00:00 | height_standard | 63 | in | + + + +---------+ | 2021-12-31 00:00 | o2_saturation | 95 | % | + + + +---------+ | 2021-12-31 00:00 | respiration_rate | 15 | /min | + + + +---------+ | 2021-12-31 00:00 | temperature_metric | 36.56 | C | | | | | | + + + +---------+ | 2021-12-31 00:00 | | 97.8 | F | | | temperature_standar | | | | | d | | | + + + +---------+ | 2021-12-31 00:00 | weight_metric | 66.28 | kg | + + + +---------+ | 2021-12-31 00:00 | weight_standard | 146.12 | lb | + + + +---------+ | 2021-12-31 00:00 | weight_standard | 146.13 | lb | + + + +---------+ | 2022-01-13 00:00 | BMI | 25.69 | kg/m2 | + + + +---------+ | 2022-01-13 00:00 | BP_diastolic | 72 | mmHg | + + + +---------+ | 2022-01-13 00:00 | BP_systolic | 144 | mmHg | + + + +---------+ | 2022-01-13 00:00 | height_metric | 160 | cm | + + + +---------+ | 2022-01-13 00:00 | height_standard | 62.99 | in | + + + +---------+ | 2022-01-13 00:00 | weight_metric | 65.77 | kg | + + + +---------+ | 2022-01-13 00:00 | weight_standard | 145 | lb | + + + +---------+ | 2022-01-14 00:00 | BMI | 25.9 | kg/m2 | + + + +---------+ | 2022-01-14 00:00 | height_metric | 160.02 | cm | + + + +---------+ | 2022-01-14 00:00 | height_standard | 63 | in | + + + +---------+ | 2022-01-14 00:00 | weight_metric | 66.28 | kg | + + + +---------+ | 2022-01-14 00:00 | weight_standard | 146.12 | lb | + + + +---------+ | 2022-01-14 00:00 | weight_standard | 146.13 | lb | + + + +---------+ | 2022-01-15 00:00 | BP_diastolic | 76 | mmHg | + + + +---------+ | 2022-01-15 00:00 | BP_systolic | 174 | mmHg | + + + +---------+ | 2022-01-15 00:00 | heart_rate | 64 | /min | + + + +---------+ | 2022-01-15 00:00 | o2_saturation | 97 | % | + + + +---------+ | 2022-01-15 00:00 | respiration_rate | 21 | /min | + + + +---------+ | 2022-01-15 00:00 | temperature_metric | 36.72 | C | | | | | | + + + +---------+ | 2022-01-15 00:00 | | 98.1 | F | | | temperature_standar | | | | | d | | | + + + +---------+ | 2022-01-25 00:00 | BMI | 25.33 | kg/m2 | + + + +---------+ | 2022-01-25 00:00 | BP_diastolic | 71 | mmHg | + + + +---------+ | 2022-01-25 00:00 | BP_systolic | 133 | mmHg | + + + +---------+ | 2022-01-25 00:00 | heart_rate | 76 | /min | + + + +---------+ | 2022-01-25 00:00 | height_metric | 160 | cm | + + + +---------+ | 2022-01-25 00:00 | height_standard | 62.99 | in | + + + +---------+ | 2022-01-25 00:00 | o2_saturation | 97 | % | + + + +---------+ | 2022-01-25 00:00 | respiration_rate | 14 | /min | + + + +---------+ | 2022-01-25 00:00 | temperature_metric | 36.72 | C | | | | | | + + + +---------+ | 2022-01-25 00:00 | | 98.1 | F | | | temperature_standar | | | | | d | | | + + + +---------+ | 2022-01-25 00:00 | weight_metric | 64.86 | kg | + + + +---------+ | 2022-01-25 00:00 | weight_standard | 143 | lb | + + + +---------+ | 2022-06-07 00:00 | BMI | 25.4 | kg/m2 | + + + +---------+ | 2022-06-07 00:00 | BP_diastolic | 61 | mmHg | + + + +---------+ | 2022-06-07 00:00 | BP_systolic | 117 | mmHg | + + + +---------+ | 2022-06-07 00:00 | heart_rate | 60 | /min | + + + +---------+ | 2022-06-07 00:00 | height_metric | 160.02 | cm | + + + +---------+ | 2022-06-07 00:00 | height_standard | 63 | in | + + + +---------+ | 2022-06-07 00:00 | o2_saturation | 98 | % | + + + +---------+ | 2022-06-07 00:00 | respiration_rate | 16 | /min | + + + +---------+ | 2022-06-07 00:00 | temperature_metric | 36.72 | C | | | | | | + + + +---------+ | 2022-06-07 00:00 | | 98.1 | F | | | temperature_standar | | | | | d | | | + + + +---------+ | 2022-06-07 00:00 | weight_metric | 65 | kg | + + + +---------+ | 2022-06-07 00:00 | weight_standard | 143.3 | lb | + + + +---------+"
--- OUTSIDE RECORDS SUMMARY | ~2023-07-03 | XMS | Continuity of Care Document ---
Demographics + + + | Address | [address] | | | [place] [address] | + + + | Preferred Language | Unknown | + + + | Marital Status | | + + + | Church Affiliation | Unknown | + + + | Race | Unknown | + + + | Ethnic Group | or | + + + Author + + + | Author | [facility] | + + + | Organization | [facility] | + + + | Address | [address] | | | [place] [address] | + + + | Phone | | + + + Care Team Providers + + + + | Care Product Development Ecologist Name | Role | Phone | + [...] + | (no date) | METFORMIN | [facility] | (no reaction) | (no severity) [...] + | (no date) | METFORMIN | [facility] | (no reaction) | (no severity) [...] + | (no date) | Mild | [facility] | (no reaction) | (no severity) [...] + | (no date) | PENICILLINS | [facility] | (no reaction) | (no severity) [...] + | (no date) | METFORMIN | [facility] | (no reaction) | (no severity) [...] + | (no date) | METFORMIN | [facility] | (no reaction) | (no severity) [...] + | (no date) | METFORMIN | [facility] | (no reaction) | (no severity) [...] + | (no date) | Swelling | [facility] | (no reaction) | (no severity) [...] + | (no date) | METFORMIN | [facility] | (no reaction) | (no severity) [...] + | (no date) | METFORMIN | [facility] | (no reaction) | (no severity) [...] | (no date) | Other (See | [facility] | (no reaction) | (no severity) [...] + | 2022-06-13 00:00 | METHIMAZOLE | [facility] | + + + + | 2021-10-09 [...] + | 2020-09-26 00:00 | ACETAMINOPHEN | [facility] | + + + + | 2022-06-13 00:00 | ACETAMINOPHEN | [facility] | + + + + | 2022-03-26 00:00 | nitroglycerin 0.02 mg/mg | [facility] | | | topical ointment | Emergency Department | | | [nitro-bid] | | + + + + | 2022-03-26 00:00 | nitroglycerin 2 % topical | [facility] | | | ointment | Emergency Department | + + + + | 2022-06-13 00:00 | ATORVASTATIN CALCIUM | [facility] | + + + + | 2021-10-04 [...] | 2022-06-13 00:00 | ASCORBIC ACID | [facility] | + + + + | 2021-10-04 [...] + | 2022-06-13 00:00 | ASPIRIN | [facility] | + + + + | 2021-10-04 00:00 | aspirin 81 mg delayed | [facility] | | | release oral tablet [...] 2021-11-24 00:00 | betamethasone 0.5 mg/ml | [facility] | | | (betamethasone dipropionate | | [...] | 2022-06-13 00:00 | FERROUS SULFATE | [facility] | + + + + | 2021-10-04 00:00 | ferrous sulfate 325 mg | [facility] | | | (iron 65 mg) [...] 00:00 | furosemide 20 mg oral | [facility] | | | tablet | Emergency Department | + + + + | 2020-09-26 00:00 | IBUPROFEN | [facility] | + + + + | 2022-06-13 00:00 | LISINOPRIL | [facility] | + + + + | 2021-10-13 [...] + | 2022-06-13 00:00 | ONDANSETRON | [facility] | + + + + | 2021-10-13 00:00 | ondansetron 8 mg | [facility] | | | disintegrating oral tablet | | + + + + | 2021-10-13 00:00 | ondansetron 8 mg | [facility] | | | disintegrating oral tablet | | + + + + | 2021-10-13 00:00 | ondansetron 8 mg | [facility] | | | disintegrating oral tablet | | + + + + | 2021-10-13 00:00 | ondansetron 8 mg | [facility] | | | disintegrating oral tablet | Emergency Department | + + + + | 2013-10-20 00:00 | POTASSIUM CHLORIDE | [facility] | + + + + | 2021-10-04 00:00 | sennosides, mcc 8.6 mg | [facility] | | | oral tablet | | + + + + | 2021-10-04 00:00 | sennosides, mcc 8.6 mg | [facility] | | | oral tablet | | + + + + | 2021-10-04 00:00 | sennosides, mcc 8.6 mg | [facility] | | | oral tablet | | + + + + | 2021-10-04 00:00 | sennosides, mcc 8.6 mg | [facility] | | | oral tablet | Emergency Department | + + + + | 2021-10-04 00:00 | acetaminophen 325 mg oral | [facility] | | | tablet | | [...] | 2022-01-15 00:00 | LISINOPRIL | [facility] | + + + + | 2021-10-04 00:00 | potassium chloride 10 meq | [facility] | | | extended release oral | | | | tablet | | + + + + | 2021-10-04 00:00 | potassium chloride 10 meq | [facility] | | | extended release oral | | | | tablet | | + + + + | 2021-10-04 00:00 | potassium chloride 10 meq | [facility] | | | extended release oral | Emergency Department | | | tablet | | + + + + | 2014-10-06 00:00 | POTASSIUM CHLORIDE | [facility] | + + + + | 2022-06-13 00:00 | DILTIAZEM HCL | [facility] | + + + + | 2021-10-04 [...] | 2022-06-13 00:00 | WARFARIN SODIUM | [facility] | + + + + | 2022-01-12 00:00 | warfarin sodium 5 mg oral | [facility] | | | tablet | | [...] + | 2022-06-13 00:00 | COLCHICINE | [facility] | + + + + | 2022-06-13 00:00 | METOPROLOL TARTRATE | [facility] | + + + + | 2021-10-04 00:00 | metoprolol tartrate 25 mg | [facility] | | | oral tablet | | + + + + | 2021-10-04 00:00 | metoprolol tartrate 25 mg | [facility] | | | oral tablet | | + + + + | 2021-10-04 00:00 | metoprolol tartrate 25 mg | [facility] | | | oral tablet | | + + + + | 2021-10-04 00:00 | metoprolol tartrate 25 mg | [facility] | | | oral tablet | Emergency Department | + + + + | 2021-10-04 00:00 | polyethylene glycol 3350 | [facility] | | | 17 gm powder for oral | | | | solution | | + + + + | 2021-10-04 00:00 | polyethylene glycol 3350 | [facility] | | | 17 gm powder for oral | | | | solution | | + + + + | 2021-10-04 00:00 | polyethylene glycol 3350 | [facility] | | | 17 gm [...] + | 2014-10-06 00:00 | Paresthesia | [facility] | + + + + | 2016-05-26 00:00 | osteoporosis (disorder) | [facility] | + + + + | 2016-05-26 00:00 | osteoporosis (disorder) | [facility] | + + + + | 2016-05-26 00:00 | osteoporosis (disorder) | [facility] | + + + + | 2016-05-26 00:00 | osteoporosis (disorder) | [facility] | | | | Emergency Department | + + + + | 2016-05-26 00:00 | Osteoporosis of multiple | [facility] | | | sites | | + + + + | 2016-05-26 00:00 | Osteoporosis of multiple | [facility] | | | sites | | + + + + | 2016-05-26 00:00 | Osteoporosis of multiple | [facility] | | | sites | | + + + + | 2016-05-26 00:00 | Osteoporosis of multiple | [facility] | | | sites | Emergency Department | + + + + | 2017-01-29 00:00 | Encounter for medical | [facility] | | | screening examination | | [...] | 2018-11-21 00:00 | Essential hypertension | [facility] | + + + + | 2018-11-21 00:00 | Essential hypertension | [facility] | + + + + | 2018-11-21 00:00 | Essential hypertension | [facility] | + + + + | 2018-11-21 00:00 | Essential hypertension | [facility] | | | | Emergency Department | + + + + | 2020-09-25 00:00 | Acute appendicitis | [facility] | + + + + | 2020-12-06 [...] 2021-09-26 00:00 | blood glucose abnormal | [facility] | | | (finding) | | + + + + | 2021-09-26 00:00 | blood glucose abnormal | [facility] | | | (finding) | | + + + + | 2021-09-26 00:00 | blood glucose abnormal | [facility] | | | (finding) | | + + + + | 2021-09-26 00:00 | blood glucose abnormal | [facility] | | | (finding) | Emergency Department | + + + + | 2021-09-26 00:00 | pulmonary edema (disorder) | [facility] | | | | | + + + + | 2021-09-26 00:00 | pulmonary edema (disorder) | [facility] | | | | | [...] | nstemi - non-st segment | [facility] | | | elevation mi | Emergency Department | + + + + | 2021-09-26 00:00 | congestive heart failure | [facility] | | | (disorder) | | [...] 00:00 | acquired long qt syndrome | [facility] | | | (disorder) | | + + + + | 2021-09-26 00:00 | acquired long qt syndrome | [facility] | | | (disorder) | | + + + + | 2021-09-26 00:00 | acquired long qt syndrome | [facility] | | | (disorder) | | + + + + | 2021-09-26 00:00 | acquired long qt syndrome | [facility] | | | (disorder) | Emergency Department | + + + + | 2021-09-26 00:00 | Acute non-ST elevation | [facility] | | | myocardial infarction | | | | (NSTEMI) | | + + + + | 2021-09-26 00:00 | Acute non-ST elevation | [facility] | | | myocardial infarction | | | | (NSTEMI) | | + + + + | 2021-09-26 00:00 | Acute non-ST elevation | [facility] | | | myocardial infarction | | | | (NSTEMI) | | + + + + | 2021-09-26 00:00 | Acute non-ST elevation | [facility] | | | myocardial infarction | Emergency Department | | | (NSTEMI) | | + + + + | 2021-09-26 00:00 | Acquired long QT syndrome | [facility] | + + + + | 2021-09-26 00:00 | Acquired long QT syndrome | [facility] | + + + + | 2021-09-26 00:00 | Acquired long QT syndrome | [facility] | + + + + | 2021-09-26 00:00 | Acquired long QT syndrome | [facility] | | | | Emergency Department | + + + + | 2021-09-26 00:00 | Congestive heart failure | [facility] | + + + + | [...] 00:00 | history of coronary artery | [facility] | | | bypass grafting | | | | (situation) | | + + + + | 2021-09-30 00:00 | history of coronary artery | [facility] | | | bypass grafting | | | | (situation) | | + + + + | 2021-09-30 00:00 | history of coronary artery | [facility] | | | bypass grafting | Emergency Department | | | (situation) | | + + + + | 2021-09-30 00:00 | Hx of CABG | [facility] | + + + + | 2021-09-30 [...] | 2021-10-02 00:00 | paroxysmal atrial | [facility] | | | fibrillation (disorder) | | [...] | 2021-10-02 00:00 | hyperthyroidism (disorder) | [facility] | | | | | + + + + | 2021-10-02 00:00 | hyperthyroidism (disorder) | [facility] | | | | | + + + + | 2021-10-02 00:00 | hyperthyroidism (disorder) | [facility] | | | | | + + + + | 2021-10-02 00:00 | hyperthyroidism (disorder) | [facility] | | | | Emergency Department | + + + + | 2021-10-02 00:00 | atherosclerosis aorta | [facility] | + + + + | [...] 2021-10-02 00:00 | Paroxysmal atrial | [facility] | | | fibrillation | | + [...] 2021-10-03 00:00 | dyslipidemia with high | [facility] | | | density lipoprotein below | | | | reference range and | | | | triglyceride above | | | | reference range due to type | | | | 2 diabetes mellitus | | | | (disorder) | | + + + + | 2021-10-03 00:00 | dyslipidemia with high | [facility] | | | density lipoprotein below | | | | reference range and | | | | triglyceride above | | | | reference range due to type | | | | 2 diabetes mellitus | | | | (disorder) | | + + + + | 2021-10-03 00:00 | dyslipidemia with high | [facility] | | | density lipoprotein below | Emergency Department | | | reference range and | | | | triglyceride above | | | | reference range due to type | | | | 2 diabetes mellitus | | | | (disorder) | | + + + + | 2021-10-03 00:00 | Dyslipidemia with low high | [facility] | | | density lipoprotein (HDL) | [...] 00:00 | history of non-st segment | [facility] | | | elevation myocardial | | | | infarction (situation) | | + + + + | 2021-10-13 00:00 | history of non-st segment | [facility] | | | elevation myocardial | | | | infarction (situation) | | + + + + | 2021-10-13 00:00 | history of non-st segment | [facility] | | | elevation myocardial | | | | infarction (situation) | | + + + + | 2021-10-13 00:00 | history of non-st segment | [facility] | | | elevation myocardial | Emergency Department | | | infarction (situation) | | + + + + | 2021-10-13 00:00 | History of non-ST | [facility] | | | elevation myocardial | | | | infarction (NSTEMI) | | + + + + | 2021-10-13 00:00 | History of non-ST | [facility] | | | elevation myocardial | | | | infarction (NSTEMI) | | + + + + | 2021-10-13 00:00 | History of non-ST | [facility] | | | elevation myocardial | | | | infarction (NSTEMI) | | + + + + | 2021-10-13 00:00 | History of non-ST | [facility] | | | elevation myocardial | Emergency Department | | | infarction (NSTEMI) | | + + + + | 2021-10-14 00:00 | acute deep vein thrombosis | [facility] | | | of lower limb (disorder) | | + + + + | 2021-10-14 00:00 | acute deep vein thrombosis | [facility] | | | of lower limb (disorder) | | + + + + | 2021-10-14 00:00 | acute deep vein thrombosis | [facility] | | | of lower limb (disorder) | | + + + + | 2021-10-14 00:00 | acute deep vein thrombosis | [facility] | | | of lower limb (disorder) | Emergency Department | + + + + | 2021-10-14 00:00 | Acute deep vein thrombosis | [facility] | | | (DVT) of lower extremity, | | | | unspecified laterality, | | | | unspecified vein | | + + + + | 2021-10-14 00:00 | Acute deep vein thrombosis | [facility] | | | (DVT) of lower extremity, | | | | unspecified laterality, | | | | unspecified vein | | + + + + | 2021-10-14 00:00 | Acute deep vein thrombosis | [facility] | | | (DVT) of lower extremity, | | | | unspecified laterality, | | | | unspecified vein | | + + + + | 2021-10-14 00:00 | Acute deep vein thrombosis | [facility] | | | (DVT) of lower extremity, | Emergency Department | | | unspecified laterality, | | | | unspecified vein | | + + + + | 2021-10-20 00:00 | patient encounter status | [facility] | | | (finding) | | + + + + | 2021-10-20 00:00 | patient encounter status | [facility] | | | (finding) | | + + + + | 2021-10-20 00:00 | patient encounter status | [facility] | | | (finding) | | + + + + | 2021-10-20 00:00 | patient encounter status | [facility] | | | (finding) | Emergency Department | + + + + | 2021-10-20 00:00 | long-term current use of | [facility] | | | anticoagulant (situation) | | [...] | long-term current use of | [facility] | | | anticoagulant (situation) | Emergency [...] + + + | 2021-10-20 00:00 | ocean transportation 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 (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) use of | [facility] | | | 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 | | + + + + | 2021-10-20 00:00 | intermediate (current) use of | [facility] | | | 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 | | + + + + | 2021-10-20 00:00 | ocean transportation 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 (current) use of | [facility] | | | 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 | | + + + + | 2021-10-20 00:00 | intermediate (current) use of | [facility] | | | 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 | Emergency Department | + + + + | 2021-10-28 00:00 | acute deep venous | [facility] | | | thrombosis of right femoral | | | | vein (disorder) | | + + + + | 2021-10-28 00:00 | acute deep venous | [facility] | | | thrombosis of right femoral | | | | vein (disorder) | | + + + + | 2021-10-28 00:00 | acute deep venous | [facility] | | | thrombosis of right femoral | | | | vein (disorder) | | + + + + | 2021-10-28 00:00 | acute deep venous | [facility] | | | thrombosis of right femoral | Emergency Department | | | vein (disorder) | | + + + + | 2021-10-28 00:00 | Acute deep vein thrombosis | [facility] | | | (DVT) of femoral vein of | | | | right lower extremity | | + + + + | 2021-10-28 00:00 | Acute deep vein thrombosis | [facility] | | | (DVT) of femoral vein of | | | | right lower extremity | | + + + + | 2021-10-28 00:00 | Acute deep vein thrombosis | [facility] | | | (DVT) of femoral vein of | | | | right lower extremity | | + + + + | 2021-10-28 00:00 | Acute deep vein thrombosis | [facility] | | | (DVT) of femoral vein of | Emergency Department | | | right lower extremity | | + + + + | 2021-12-05 00:00 | angina | [facility] | + + + + | [...] + | 2021-12-31 00:00 | Nausea | [facility] | + + + + | 2022-01-06 00:00 | aortic stenosis, | [facility] | | | non-rheumatic (disorder) | | + + + + | 2022-01-06 00:00 | aortic stenosis, | [facility] | | | non-rheumatic (disorder) | | + + + + | 2022-01-06 00:00 | aortic stenosis, | [facility] | | | non-rheumatic (disorder) | | + + + + | 2022-01-06 00:00 | Nonrheumatic aortic | [facility] | | | (valve) stenosis | | + + + + | 2022-01-06 00:00 | Nonrheumatic aortic | [facility] | | | (valve) stenosis | | + + + + | 2022-01-06 00:00 | Nonrheumatic aortic | [facility] | | | (valve) stenosis [...] | 2022-01-07 00:00 | Chronic pericarditis | [facility] | + + + + | 2022-01-15 00:00 | Hypertension | [facility] | + + + + | 2022-04-27 [...] 2021-12-05 00:00 | TROPONIN - EXTERNAL | [facility] | | | | Emergency [...] 00:00 | X-RAY CHEST 1 VIEW | [facility] | | | PORTABLE | [...] + | Specimen | (no date) | [facility] | (missing) | (missing) | (missing) | [...] + | Specimen | (no date) | [facility] | (missing) | (missing) | (missing) | [...] + | Specimen | (no date) | [facility] | (missing) | (missing) | (missing) | [...] + | Specimen | (no date) | [facility] | (missing) | (missing) | (missing) | [...] + | Specimen | (no date) | [facility] | (missing) | (missing) | (missing) | [...] + | Specimen | (no date) | [facility] | (missing) | (missing) | (missing) | [...] + | Specimen | (no date) | [facility] | (missing) | (missing) | (missing) | [...] + | Specimen | (no date) | [facility] | (missing) | (missing) | (missing) | [...] + | Specimen | (no date) | [facility] | (missing) | (missing) | (missing) | [...] + | Specimen | (no date) | [facility] | (missing) | (missing) | (missing) | [...] +-------+--------+ + | WBC | 2021-12-05 | [facility] | 9.5 | K/uL | (missing) | | | 07:38 | [facility] | | | | | | | Emergency | | | | | | | Department | | | | +-------+ + +-------+--------+ + + + | Result panel 28 | + + +-------+ + +-------+ + + | RBC | 2021-12-05 | [facility] | 4.3 | (missing) | (missing) | | | 07:38 | [facility] | | | | | | | Emergency | | | | | | | Department | | | | +-------+ + +-------+ + + + + | Result panel 29 | + + +-------+ + +--------+--------+ + | Hgb | 2021-12-05 | [facility] | 12.6 | g/dL | (missing) | | | 07:38 | [facility] | | | | | | | Emergency | | | | | | | Department | | | | +-------+ + +--------+--------+ + + + | Result panel 30 | + + +-------+ + +--------+-----+ + | HCT | 2021-12-05 | [facility] | 37.9 | % | (missing) | | | 07:38 | [facility] | | | | | | | Emergency | | | | | | | Department | | | | +-------+ + +--------+-----+ + + + | Result panel 31 | + + + + + +--------+------+ + | Mean | 2021-12-05 | [facility] | 89.1 | fl | (missing) | [...] +--------+------+ + | Mean | 2021-12-05 | [facility] | 29.7 | pg | (missing) | [...] +--------+--------+ + | Mean | 2021-12-05 | [facility] | 33.3 | g/dL | (missing) | [...] + | Red Cell | 2021-12-05 | [facility] | 14.8 | % | (missing) | [...] +-------+--------+ + | Platelet | 2021-12-05 | [facility] | 259 | K/uL | (missing) | [...] +--------+-----+ + | Neutrophils | 2021-12-05 | [facility] | 59.9 | % | (missing) | [...] +--------+-----+ + | Lymphocytes | 2021-12-05 | [facility] | 24.7 | % | (missing) | [...] +-------+-----+ + | Monocytes | 2021-12-05 | [facility] | 5.5 | % | (missing) | [...] +-------+--------+ + | Neutrophils | 2021-12-05 | [facility] | 5.7 | K/uL | (missing) | [...] +-------+--------+ + | Lymphocytes | 2021-12-05 | [facility] | 2.3 | K/uL | (missing) | [...] +-------+--------+ + | Monocytes | 2021-12-05 | [facility] | 0.5 | K/uL | (missing) | [...] +-------+--------+ + | Eosinophils | 2021-12-05 | [facility] | 0.9 | K/uL | (missing) | [...] +-------+--------+ + | Basophils | 2021-12-05 | [facility] | 0.1 | K/uL | (missing) | [...] + + + | | 2021-12-05 | [facility] | (missing) | (missing) | (missing) | [...] + + + | | 2021-12-05 | [facility] | (missing) | (missing) | (missing) | [...] + + | Chest | 2021-12-05 | [facility] | (missing) | (missing) | (missing) | [...] + + + | | 2021-12-05 | [facility] | (missing) | (missing) | (missing) | [...] + + + | | 2021-12-05 | [facility] | Abnormal | (missing) | (missing) | [...] + | Sodium Lvl | 2021-12-05 | [facility] | 141 | mmol/L | (missing) | [...] + + | Potassium | 2021-12-05 | [facility] | 4.5 | (missing) | (missing) | [...] + + | Chloride | 2021-12-05 | [facility] | 107 | mmol/L | (missing) | [...] + + | CO2 | 2021-12-05 | [facility] | 22 | mmol/L | (missing) | [...] + | Anion Gap | 2021-12-05 | [facility] | 12.0 | (missing) | (missing) | [...] +-------+---------+ + | Glucose, | 2021-12-05 | [facility] | 140 | mg/dL | (missing) | [...] + | Blood Urea | 2021-12-05 | [facility] | 17 | mg/dL | (missing) | [...] +--------+---------+ + | Creatinine | 2021-12-05 | [facility] | 0.73 | mg/dL | (missing) | [...] + + | GFR | 2021-12-05 | [facility] | >60 | (missing) | (missing) | [...] + | Calcium Lvl | 2021-12-05 | [facility] | 8.5 | mg/dL | (missing) | [...] +-------+---------+ + | Corrected | 2021-12-05 | [facility] | 8.7 | mg/dL | (missing) | [...] + + | Total | 2021-12-05 | [facility] | 7.2 | (missing) | (missing) | [...] + + | Albumin | 2021-12-05 | [facility] | 3.7 | (missing) | (missing) | [...] + + | Globulin | 2021-12-05 | [facility] | 3.5 | (missing) | (missing) | [...] +-------+ + + | | 2021-12-05 | [facility] | 1.1 | (missing) | (missing) | [...] +-------+---------+ + | Bilirubin | 2021-12-05 | [facility] | 0.3 | mg/dL | (missing) | [...] + + | AST/SGOT | 2021-12-05 | [facility] | 17 | (missing) | (missing) | [...] + + | ALT/SGPT | 2021-12-05 | [facility] | 26 | (missing) | (missing) | [...] + + | Alkaline | 2021-12-05 | [facility] | 131 | (missing) | (missing) | [...] + + + | | 2021-12-05 | [facility] | (missing) | (missing) | (missing) | [...] + + + | | 2021-12-05 | [facility] | Abnormal | (missing) | (missing) | [...] + | Troponin I | 2021-12-05 | [facility] | 0.09 | ng/mL | (missing) | [...] + + + | | 2021-12-05 | [facility] | (missing) | (missing) | (missing) | [...] + + + | | 2021-12-05 | [facility] | Abnormal | (missing) | (missing) | [...] +------+-------+ + | Lipase | 2021-12-05 | [facility] | 73 | U/L | (missing) | [...] + + | PT | 2021-12-05 | [facility] | 23.3 | (missing) | (missing) | [...] + + + | | 2021-12-05 | [facility] | (missing) | (missing) | (missing) | [...] + + + | | 2021-12-05 | [facility] | Abnormal | (missing) | (missing) | [...] + + | PTT | 2021-12-05 | [facility] | 40.4 | (missing) | (missing) | [...] + + + | | 2021-12-05 | [facility] | (missing) | (missing) | (missing) | [...] + + + | | 2021-12-05 | [facility] | (missing) | (missing) | (missing) | [...] + + + | | 2021-12-05 | [facility] | (missing) | (missing) | (missing) | [...] | COVID - 19 | 2021-12-05 | [facility] | TNP | (missing) | (missing) | [...] + | COVID 19 | 2021-12-05 | [facility] | TNP | (missing) | (missing) | [...] + + + | | 2021-12-05 | [facility] | (missing) | (missing) | (missing) | [...] FLU A - EXT | 2021-12-05 | [facility] | NEGATIVE | (missing) | (missing) | [...] + + + | | 2021-12-05 | [facility] | (missing) | (missing) | (missing) | [...]
[~2023-07-03 18:41] MED LIST changes: +LISINOPRIL20 MG PO
[2023-07-03 21:05] VITALS: BP 155/77
== END 2023-07-03 21:05 | disposition home or self-care (01) ==
LOC: ED 18:41
DX: S00.412A Abrasion of left ear, initial encounter (principal); L08.9 Local infection of the skin and subcutaneous tissue, unspecified; S09.22XA Traumatic rupture of left ear drum, initial encounter; X58.XXXA Exposure to other specified factors, initial encounter; Z88.0 Allergy status to penicillin; Z79.01 Long term (current) use of 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; Z79.82 Long term (current) use of aspirin; Z79.899 Other long term (current) drug therapy
CPT/HCPCS: 99282

== ENCOUNTER 2024-11-29 01:20 | Emergency (ER) | payer MEDICARE, OTHER ==
[~2024-11-29] VITALS: Ht 160 cm; Wt 69.4 kg
[~2024-11-29 01:20] MED LIST changes: +MECLIZINE HCL25 MG PO
[2024-11-29] MEDS ORDERED: ondansetron HCL 4 MG/2 ML VIAL IV ONE (01:45)
[2024-11-29] MEDS ORDERED: FAMOTIDINE 20 MG/ 2 ML VIAL IV ONE (01:45)
[2024-11-29] MEDS ORDERED: SUCRALFATE 1 GM TAB PO ONE (01:45)
[2024-11-29] MEDS ORDERED: SODIUM CHLORIDE 0.9% 500 ML IV ONE (01:45)
[2024-11-29 01:52] LABS: BASOPHILS 0.6 % (0-2); EOSINOPHILS 0.3 % (0-6); HEMATOCRIT 38.3 % (35.0-50.0); HEMOGLOBIN 13.1 g/dL (12.0-18.0); LYMPHOCYTES 19.7 % (24-44); MCHC 34.1 g/dl (30-36); MONOCYTES 5.4 % (0-12); PLATELET COUNT 208 K/uL (140-440); RBC 4.35 M/ul (4.3-5.7); RDW 13.7 (10.5-15.0)
[2024-11-29 02:09] LABS: ALBUMIN 3.4 g/dL (3.4-5.0); ALBUMIN/GLOBULIN RATIO 0.77 (1.1-2.4); ANION GAP 12.9 (7-21); BILIRUBIN, TOTAL 0.5 ng/dL (0.2-1.0); BUN/CREATININE RATIO 25.75 (6.0-28.6); CALCIUM 9.3 mg/dL (8.5-10.1); CREATININE, SERUM 0.66 mg/dL (0.55-1.02); POTASSIUM 3.9 mmol/L (3.5-5.1); PROTEIN, TOTAL 7.8 g/dL (6.4-8.2)
[2024-11-29 02:43] LABS: INR 1.86 (0.80-1.30); PROTIME 21.4 Sec (11.2-14.2)
[2024-11-29] MEDS ORDERED: LIDOCAINE & ANTACID 35 ML BTL PO ONE (02:45)
[2024-11-29] MEDS ORDERED: LACTATED RINGER'S 1,000 ML IV ONE (02:45)
[2024-11-29 03:20] LABS: BILIRUBIN, URINE NEGATIVE (negative); BLOOD/HGB, URINE LARGE (Negative); KETONE, URINE NEGATIVE (Negative); LEUK ESTERASE, URINE NEGATIVE (negative); NITRITE, URINE NEGATIVE (negative); PH, URINE 7.5 (5-7)
[2024-11-29 03:25] LABS: EPITHELIAL CELLS, URINE SQUAMOUS 1+ /lpf (0-1+)
[2024-11-29 03:26] LABS: BACTERIA, URINE RARE /hpf (negative); CASTS, URINE NONE SEEN \\lpf; COLLECTION TYPE, URINE CLEAN CATCH; CRYSTALS, URINE NONE SEEN (0-1+); RED BLOOD CELLS, URINE 41-50 /hpf (0-5); REFLEX CULTURE, URINE No (No)
[2024-11-29] MEDS ORDERED: METOPROLOL TARTRATE 5 MG/5 ML VIAL IV ONE (04:15)
[2024-11-29] MEDS ORDERED: ASPIRIN 81 MG CHEW PO ONE (04:15)
[2024-11-29 04:18] LABS: TSH, 3RD GENERATION <0.007 uIU/mL (0.358-3.740)
[2024-11-29] MEDS ORDERED: HEPARIN SOD,PORK IN 0.45% NACL 500 ML IV SCH (04:30)
[2024-11-29] MEDS ORDERED: HEParin SOD (PORCINE) 5,000 UNIT/ML VIAL IV ONE (04:30)
[2024-11-29 08:41] LABS: INR 1.88 (0.80-1.30); PROTIME 21.6 Sec (11.2-14.2)
[2024-11-29 08:44] LABS: PARTIAL THROMBOPLASTIN TIME 108.3 Sec (22.9-41.3)
[2024-11-29 09:19] VITALS: BP 146/73
--- NOTE | 2024-11-30 21:50 | EKG ---
[facility] [address] [place], [place] [address] Signed Sinus tachycardia Minimal voltage criteria for LVH, may be normal variant ( R in aVL ) Borderline ECG When compared with ECG of 29-NOV-2024 01:46, (Unconfirmed) Non-specific change in ST segment in Anterior leads Confirmed by Coleen Morgan DO ([id number]) on 11/30/2024 9:49:53 PM Electronically Signed By: COLEEN MORGAN DO 11/30/242149 PATIENT NAME: MADDIE ARENAS Electrocardiogram DATE OF : 44 PHYSICIAN: COLEEN MORGAN DO REPORT #: [id number] REPORT IS CONFIDENTIAL AND NOT TO BE RELEASED WITHOUT AUTHORIZATION
--- NOTE | 2024-11-30 21:50 | EKG ---
[facility] [address] [place], [place] [address] Signed Sinus tachycardia Minimal voltage criteria for LVH, may be normal variant ( R in aVL ) Borderline ECG When compared with ECG of 07-JUN-2022 20:50, Vent. rate has increased BY 39 BPM Confirmed by Coleen Morgan DO ([id number]) on 11/30/2024 9:49:48 PM Electronically Signed By: COLEEN MORGAN DO 11/30/242149 PATIENT NAME: MADDIE ARENAS Electrocardiogram DATE OF : 44 PHYSICIAN: COLEEN MORGAN DO REPORT #: [id number] REPORT IS CONFIDENTIAL AND NOT TO BE RELEASED WITHOUT AUTHORIZATION
--- NOTE | 2024-11-30 21:51 | EKG ---
[facility] [address] [place], [place] [address] Signed Sinus rhythm with 1st degree AV block Minimal voltage criteria for LVH, may be normal variant ( R in aVL ) Borderline ECG When compared with ECG of 29-NOV-2024 03:16, (Unconfirmed) Non-specific change in ST segment in Anterior leads Confirmed by Coleen Morgan DO ([id number]) on 11/30/2024 9:51:06 PM Electronically Signed By: COLEEN MORGAN DO 11/30/242150 PATIENT NAME: MADDIE ARENAS Electrocardiogram DATE OF : 44 PHYSICIAN: COLEEN MORGAN DO REPORT #: [id number] REPORT IS CONFIDENTIAL AND NOT TO BE RELEASED WITHOUT AUTHORIZATION
== END 2024-11-29 09:19 | disposition short-term general hospital (02) ==
LOC: ED 01:20
PROVIDERS: Emergency Medicine; Internal Medicine
DX: I21.4 Non-ST elevation (NSTEMI) myocardial infarction (principal); E05.90 Thyrotoxicosis, unspecified without thyrotoxic crisis or storm; I10 Essential (primary) hypertension; Z95.2 Presence of prosthetic heart valve; Z88.0 Allergy status to penicillin; Z79.01 Long term (current) use of 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; Z79.82 Long term (current) use of aspirin; Z79.899 Other long term (current) drug therapy
CPT/HCPCS: 36415; 71045; 80053; 81001; 83690; 83735; 83880; 84439; 84443; 84484; 85025; 85610; 85730; 93005; 93010; 93306; 96361; 96374; 96375; 99285-25; A9270; J1644; J2405; J7121